=== PATIENT | male | born 1945 | race Caucasian/White ===

== ENCOUNTER 2025-02-05 18:00 | Inpatient (IN) | payer MEDICARE ==
[2025-02-05 20:49] LABS: HCT 39.6 % (39.6-50.0); HGB 13.8 g/dL (13.0-17.0); MCH 28.8 pg (27.0-32.0); MCHC 34.8 g/dL (32.0-37.0); MCV 82.7 fL (80.0-97.0); Mean Platelet Volume 10.3 fL (9.5-12.2); Platelet Count 143 10*3/uL (140-440); RBC 4.79 10*6/uL (4.40-5.60); WBC 19.44 10*3/uL (4.50-10.00)
[2025-02-05 21:00] LABS: ALT 47 U/L (4-49); AST 41 U/L (17-59); African American GFR (CKD) 81 (>60 ml/min/1.73 sqM); Albumin 3.4 g/dL (3.5-5.0); Alkaline Phosphatase 83 U/L (38-126); Anion Gap 7 mmol/L; Blood Urea Nitrogen 36 mg/dL (9-20); Calcium 9.1 mg/dL (8.4-10.2); Carbon Dioxide 24 mmol/L (22-30); Chloride 92 mmol/L (98-107); Glucose 129 mg/dL (74-99); Non-African American GFR(CKD) 70 (>60 ml/min/1.73 sqM); Potassium 4.5 mmol/L (3.5-5.1); Sodium 123 mmol/L (137-145); Total Protein 5.9 g/dL (6.3-8.2)
--- NOTE | 2025-02-05 21:11 | XR ---
EXAMINATION TYPE: XR foot complete RT, XR tibia fibula RT DATE OF EXAM: 02/05/2025 COMPARISON: NONE HISTORY: Infection TECHNIQUE: Frontal, lateral and oblique images of the right foot are obtained. Frontal and lateral i mages of the right tibia/fibula were obtained. FINDINGS: No acute fracture or dislocation. There is advanced joint space narrowing with sclerosis an d osteophytosis involving the first MTP joint. Remaining joint spaces are preserved. No osseous erosi ons. No radiopaque foreign body. Diffuse soft tissue swelling of the dorsal foot. Additional soft tis ver[place] swelling of the visualized right lower extremity and ankle. No discrete soft tissue gas. Plantar calcaneal enthesophyte. Chondrocalcinosis involving the medial and lateral tibiofemoral joint spaces. IMPRESSION: 1. No acute fracture or dislocation. 2. Diffuse nonspecific soft tissue swelling of the visualized right lung extremity. 3. No osseous erosive changes to suggest osteomyelitis. 4. 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 5. Chondrocalcinosis. [facility], , 02/05/2025 9:08 PM
[2025-02-05 21:12] LABS: Band Neutrophils % 18 %; Lymphocytes # (M) 0.39 k/uL (1.0-4.8); Myelocytes # (M) 0.19 k/uL (0); Myelocytes % 1 %; Neutrophils # (M) 19.24 k/uL (1.3-7.7); Neutrophils % (M) 81 %; Nucleated Red Blood Cells 0 /100 WBC (0-0); Total Cells Counted 200; Toxic Vacuolation Present
[2025-02-05 21:13] LABS: Large Platelets Present; Polychromasia Present
[2025-02-05] MEDS: SODIUM CHLORIDE 0.9% 1,000 ML IV SCH (21:18)
[2025-02-05] MEDS: SODIUM CHLORIDE 0.9% 1,000 ML IV ONE (21:18)
[2025-02-05] MEDS ORDERED: VANCOMYCIN IV PER PHARMACY 1 EACH MISC MISCELLANE PRN (21:18)
[2025-02-05] MEDS ORDERED: NALOXONE 0.4 MG/ML 1 ML VIAL IV PRN (21:21)
--- NOTE | 2025-02-05 21:24 | ED ---
General Adult HPI - General Chief complaint: Skin/Abscess/Foreign Body Stated complaint: swelling lower extremities Time Seen by Provider: 02/05/25 20:13 Source: patient Mode of arrival: wheelchair Limitations: no limitations - History of Present Illness Initial comments: 79-year-old male presenting with chief complaint of redness in the right lower extremity. Patient is also experiencing fever and chills. states that for the past few days he has had a fever and has been a bit confused and lethargic. Today she noticed the redness in his foot and up to the front of his leg and she brought him here to the ER. No injury or trauma. He does have a callus near the MTP joint that he states is a bit more painful than usual. He does have swelling in this leg as well. No chest pain or difficulty breathing. - Related Data Home Medications Medication Instructions Recorded Confirmed Atorvastatin [Lipitor] 80 mg PO W/SUPPER 02/06/25 02/06/25 Enalapril [Vasotec] 10 mg PO DAILY@1500 02/06/25 02/06/25 Ezetimibe [Zetia] 10 mg PO W/SUPPER 02/06/25 02/06/25 Gabapentin [Neurontin] 300 mg PO TID 02/06/25 02/06/25 Ibuprofen [Motrin Ib] 600 mg PO Q6H PRN 02/06/25 02/06/25 atenoloL [Tenormin] 25 mg PO DAILY 02/06/25 02/06/25 traMADol HCL 50 mg PO TID 02/06/25 02/06/25 Allergies Allergy/AdvReac Type Severity Reaction Status Date / Time No Known Allergies Allergy Verified 02/06/25 08:11 Review of Systems ROS Statement: Those systems with pertinent positive or pertinent negative responses have been documented in the HPI. ROS Other: All systems not noted in ROS Statement are negative. Past Medical History Past Medical History: Hyperlipidemia, Hypertension History of Any Multi-Drug Resistant Organisms: None Reported Past Surgical History: Back Surgery Past Psychological History: No Psychological Hx Reported Smoking Status: Former smoker Past Alcohol Use History: Occasional Past Drug Use History: None Reported General Exam Limitations: no limitations General appearance: alert, in no apparent distress Head exam: Present: atraumatic, normocephalic, normal inspection Eye exam: Present: normal appearance, EOMI Neck exam: Present: normal inspection. Absent: meningismus Respiratory exam: Absent: respiratory distress Cardiovascular Exam: Present: regular rate Right Lower Leg exam: Present: tenderness, swelling, erythema Ankle exam: Present: full ROM, tenderness, swelling, erythema Foot/Toe exam: Present: full ROM, tenderness, swelling, erythema. Absent: normal inspection Neurological exam: Present: alert, oriented X3 Psychiatric exam: Present: normal affect, normal mood Skin exam: Present: erythema Course Vital Signs 02/05/25 02/05/25 02/05/25 18:12 20:19 21:19 Temperature 97.9 F Pulse Rate 97 85 98 Respiratory 17 16 18 Rate Blood Pressure 96/60 110/68 114/78 O2 Sat by Pulse 95 98 95 Oximetry 02/05/25 22:00 Temperature 98.6 F Pulse Rate Respiratory Rate Blood Pressure O2 Sat by Pulse Oximetry Medical Decision Making - Medical Decision Making Was pt. sent in by a medical professional or institution (, PA, ARTIST MODEL, urgent care, hospital, or halfway...) When possible be specific @ -No Did you speak to anyone other than the patient for history (EMS, parent, family, police, friend...)? What history was obtained from this source @ - and daughter Did you review nursing and triage notes (agree or disagree)? Why? @ -I reviewed and agree with nursing and triage notes Were old charts reviewed (outside hosp., previous admission, EMS record, old EKG, old radiological studies, urgent care reports/EKG's, halfway records)? Report findings @ -No old charts were reviewed Differential Diagnosis (chest pain, altered mental status, abdominal pain women, abdominal pain men, vaginal bleeding, weakness, fever, dyspnea, syncope, headache, dizziness, GI bleed, back pain, seizure, CVA, palpatations, mental health, musculoskeletal)? @ -Differential Musculoskeletal Muscular strain, contusion, ligament sprain, fracture, arthritis, septic arthritis, bursitis, cellulitis, muscle spasm, nerve compression, DVT, arterial occlusion, herpes zoster, electrolyte abnormality, tumor.... This is not meant to be in all inclusive list EKG interpreted by me (3pts min.). @ -As above X-rays interpreted by me (1pt min.). @ -X-ray negative for acute fracture or dislocation. No osseous erosive changes to suggest osteomyelitis. Diffuse nonspecific soft tissue swelling. Ad vanced osteoarthritic changes to the first MTP joint. Chondrocalcinosis. CT interpreted by me (1pt min.). @ -None done U/S interpreted by me (1pt. min.). @ -None done What testing was considered but not performed or refused? (CT, X-rays, U/S, labs)? Why? @ -None What meds were considered but not given or refused? Why? @ -None Did you discuss the management of the patient with other professionals (professionals i.e. , PA, ARTIST MODEL, lab, RT, psych nurse, clinical social work therapist, certified dental assistant, teacher, security public safety officer, medical case manager)? Give summary @ -Spoke with Dr. Gusman who accepts admission Was smoking cessation discussed for >3mins.? @ -No Was critical care preformed (if so, how long)? @ -No Were there social determinants of health that impacted care today? How? (Homelessness, low income, unemployed, alcoholism, drug addiction, transportation, low edu. Level, literacy, decrease access to med. care, retirement, rehab)? @ -No Was there de-escalation of care discussed even if they declined (Discuss DNR or withdrawal of care, Hospice)? DNR status @ -No What co-morbidities impacted this encounter? (DM, HTN, Smoking, COPD, CAD, Cancer, CVA, ARF, Chemo, Hep., AIDS, mental health diagnosis, sleep apnea, morbid obesity)? @ -None Was patient admitted / discharged? Hospital course, mention meds given and route, prescriptions, significant lab abnormalities, going to OR and other pertinent info. @ -79-year-old male presenting chief complaint of redness tenderness and swelling to the right lower extremity accompanied by fever and some confusion. History and physical examination are conducted. X-ray negative for osteomyelitis. White count of 19.44. CRP 33.5. He started on Zosyn and vancomycin after blood cultures are drawn. He will be admitted for cellulitis with sepsis. Patient and family are agreeable with this plan. I discussed this case with my attending Dr. Saenz Undiagnosed new problem with uncertain prognosis? @ -No Drug Therapy requiring intensive monitoring for toxicity (Heparin, Nitro, Insulin, Cardizem)? @ -No Were any procedures done? @ -No Diagnosis/symptom? @ -Cellulitis with sepsis Acute, or Chronic, or Acute on Chronic? @ -Acute Uncomplicated (without systemic symptoms) or Complicated (systemic symptoms)? @ -Complicated Side effects of treatment? @ -No Exacerbation, Progression, or Severe Exacerbation? @ -No Poses a threat to life or bodily function? How? (Chest pain, [place], [place], pneumonia, PE, COPD, DKA, ARF, appy, cholecystitis, CVA, Diverticulitis, Homicidal, Suicidal, threat to staff... and all critical care pts) @ -Yes - Lab Data Result diagrams: 02/10/25 16:26 02/10/25 16:26 Lab Results 02/05/25 02/05/25 02/05/25 Range/Units 20:33 20:33 20:33 WBC 19.44 H (4.50-10.00) 10*3/uL RBC 4.79 (4.40-5.60) 10*6/uL Hgb 13.8 (13.0-17.0) g/dL Hct 39.6 (39.6-50.0) % MCV 82.7 (80.0-97.0) fL MCH 28.8 (27.0-32.0) pg MCHC 34.8 (32.0-37.0) g/dL Plt Count 143 (140-440) 10*3/uL MPV 10.3 (9.5-12.2) fL Immature Gran % (Auto) 7.4 % Neutrophils % (Manual) 81 % Band Neuts % (Manual) 18 % Lymphocytes % (Manual) 2 % Myelocytes % 1 % Immature Gran # 1.44 H (0.00-0.04) 10*3/uL Neutrophils # (Manual) 19.24 H (1.3-7.7) k/uL Lymphocytes # (Manual) 0.39 L (1.0-4.8) k/uL Myelocytes # (Manual) 0.19 H (0) k/uL Nucleated RBCs 0 (0-0) /100 WBC Manual Slide Review Performed Toxic Vacuolation Present Large Platelets Present Polychromasia Present ESR 40 H (0-20) mm/Hr Sodium 123 L (137-145) mmol/L Potassium 4.5 (3.5-5.1) mmol/L Chloride 92 L (98-107) mmol/L Carbon Dioxide 24 (22-30) mmol/L Anion Gap 7 mmol/L BUN 36 H (9-20) mg/dL Creatinine 1.03 (0.66-1.25) mg/dL Est GFR (CKD-EPI)AfAm 81 (>60 ml/min/1.73 sqM) Est GFR (CKD-EPI)NonAf 70 (>60 ml/min/1.73 sqM) Glucose 129 H (74-99) mg/dL Plasma Lactic Acid Dane 1.2 (0.7-2.0) mmol/L Calcium 9.1 (8.4-10.2) mg/dL Total Bilirubin 1.0 (0.2-1.3) mg/dL AST 41 (17-59) U/L ALT 47 (4-49) U/L Alkaline Phosphatase 83 (38-126) U/L C-Reactive Protein 33.5 H (<1.0) mg/dL Total Protein 5.9 L (6.3-8.2) g/dL Albumin 3.4 L (3.5-5.0) g/dL Disposition Clinical Impression: Cellulitis Disposition: ADMITTED IP TO THIS HOSP Condition: Fair Time of Disposition: 21:24
[2025-02-05] MEDS: PIPERACILLIN-TAZOBACTAM 3.375 GM in SODIUM CHLORIDE 0.9% 100 ML IVPB STA (21:41)
[2025-02-05] MEDS: MORPHINE SULFATE 4 MG/ML SYRINGE IVP PRN (21:43)
[2025-02-05 22:01] LABS: C Reactive Protein 33.5 mg/dL (<1.0)
[2025-02-05] MEDS: VANCOMYCIN 1,750 MG in SODIUM CHLORIDE 0.9% 500 ML 500 ML IVPB STA (22:41)
[2025-02-05] MEDS: ENOXAPARIN 40 MG/0.4 ML SYRINGE SQ SCH (23:47)
[2025-02-06] MEDS ORDERED: AMPICILLIN-SULBACTAM 1.5 GM in SODIUM CHLORIDE 0.9% 50 ML IVPB SCH
[2025-02-06 03:15] LABS: HCT 37.5 % (39.6-50.0); HGB 12.7 g/dL (13.0-17.0); Immature Platelet Fraction 3.6 % (1.1-6.1); MCH 28.7 pg (27.0-32.0); MCHC 33.9 g/dL (32.0-37.0); MCV 84.7 fL (80.0-97.0); Mean Platelet Volume 9.9 fL (9.5-12.2); Platelet Count 115 10*3/uL (140-440); RBC 4.43 10*6/uL (4.40-5.60); RDW 13.1 % (11.5-14.5)
[2025-02-06 03:32] LABS: African American GFR (CKD) >90 (>60 ml/min/1.73 sqM); Anion Gap 5 mmol/L; Blood Urea Nitrogen 28 mg/dL (9-20); Calcium 8.8 mg/dL (8.4-10.2); Carbon Dioxide 27 mmol/L (22-30); Chloride 96 mmol/L (98-107); Glucose 119 mg/dL (74-99); Non-African American GFR(CKD) 81 (>60 ml/min/1.73 sqM); Potassium 4.6 mmol/L (3.5-5.1); Sodium 128 mmol/L (137-145)
[2025-02-06 03:43] LABS: Erythrocyte Sedimentation Rate 40 mm/Hr (0-20)
[2025-02-06 06:24] LABS: Band Neutrophils % 6 %; Lymphocytes # (M) 0.69 k/uL (1.0-4.8); Monocytes # (M) 0.41 k/uL (0-1.0); Neutrophils # (M) 12.69 k/uL (1.3-7.7); Neutrophils % (M) 86 %; Nucleated Red Blood Cells 0 /100 WBC (0-0); Total Cells Counted 100
[2025-02-06] MEDS: traMADol 50 MG TAB PO PRN (08:42)
[2025-02-06] MEDS: AMPICILLIN-SULBACTAM 1.5 GM in SODIUM CHLORIDE 0.9% 50 ML IVPB SCH (08:45)
[2025-02-06] MEDS: ACETAMINOPHEN TAB 325 MG TAB PO PRN (09:03)
[2025-02-06] MEDS: GABAPENTIN 300 MG CAP PO SCH (12:02)
[2025-02-06] MEDS: LACTATED RINGERS 1,000 ML IV SCH (12:02)
[2025-02-06] MEDS: traMADol 50 MG TAB PO SCH (12:03)
[2025-02-06] MEDS: atenoloL 25 MG TAB PO SCH (12:03)
[2025-02-06] MEDS: ASPIRIN 81 MG PO SCH (12:03)
--- NOTE | 2025-02-06 12:59 | US ---
EXAMINATION TYPE: US venous doppler duplex LE RT DATE OF EXAM: 02/06/2025 12:25 PM COMPARISON: NONE CLINICAL INDICATION: Male, 79 years old with history of swollen and red; cellulitis, no h/o dvt TECHNIQUE: The lower extremity deep venous system is examined utilizing real time linear array sonog zuri with graded compression, color doppler sonography, and spectral doppler. SIDE PERFORMED: Right FINDINGS: VESSELS IMAGED: Common Femoral Vein Deep Femoral Vein Greater Saphenous Vein * Femoral Vein Popliteal Vein Small Saphenous Vein * Proximal Calf Veins (* superficial vessels) Right Leg: Negative for DVT, Color Doppler imaging shows patency of the vessels. Spectral waveforms are within normal limits. IMPRESSION: No ultrasound evidence for deep venous thrombosis. [facility], , 02/06/2025 12:56 PM
--- NOTE | 2025-02-06 13:45 | P.GSCN ---
History of Present Illness History of present illness: 79-year-old diabetic male history of cellulitis of the right lower extremity for the last few days no history of trauma patient came to the emergency room yesterday started on IV antibiotic venous ultrasou negative for DVT Past history patient had a cardiac stent placed in the past on examination chest is clear good good entry both lung 1st and 2nd sound present Abdomen soft nontender vascular femorals are 1+ bilateral right lower extremity has swelling of the dorsum aspect of the foot and lower extremity has a marked cellulitis and also right groin area patient is cellulitis right lower extremity plan is patient IV antibiotic and Silvadene cream with applied to the right lower extremity with 2 pillow elevation we will follow with you Past Medical History Past Medical History: Hyperlipidemia, Hypertension History of Any Multi-Drug Resistant Organisms: None Reported Past Surgical History: Back Surgery Past Psychological History: No Psychological Hx Reported Smoking Status: Former smoker Past Alcohol Use History: Occasional Past Drug Use History: None Reported Medications and Allergies Home Medications Medication Instructions Recorded Confirmed Type Atorvastatin [Lipitor] 80 mg PO W/SUPPER 02/06/25 02/06/25 History Enalapril [Vasotec] 10 mg PO DAILY@1500 02/06/25 02/06/25 History Ezetimibe [Zetia] 10 mg PO W/SUPPER 02/06/25 02/06/25 History Gabapentin [Neurontin] 300 mg PO TID 02/06/25 02/06/25 History Ibuprofen [Motrin Ib] 600 mg PO Q6H PRN 02/06/25 02/06/25 History atenoloL [Tenormin] 25 mg PO DAILY 02/06/25 02/06/25 History traMADol HCL 50 mg PO TID 02/06/25 02/06/25 History Allergies Allergy/AdvReac Type Severity Reaction Status Date / Time No Known Allergies Allergy Verified 02/06/25 08:11 Surgical - Exam Vital Signs Temp Pulse Resp BP Pulse Ox 97.9 F 97 17 96/60 95 02/05/25 18:12 02/05/25 18:12 02/05/25 18:12 02/05/25 18:12 02/05/25 18:12 Results - Labs 02/06/25 02:56 02/06/25 02:56 Abnormal Lab Results - Last 24 Hours (Table) 02/05/25 02/05/25 02/06/25 Range/Units 20:33 20:33 02:56 WBC 19.44 H (4.50-10.00) 10*3/uL Hgb (13.0-17.0) g/dL Hct (39.6-50.0) % Plt Count (140-440) 10*3/uL Immature Gran # 1.44 H (0.00-0.04) 10*3/uL Neutrophils # (Manual) 19.24 H (1.3-7.7) k/uL Lymphocytes # (Manual) 0.39 L (1.0-4.8) k/uL Myelocytes # (Manual) 0.19 H (0) k/uL ESR 40 H (0-20) mm/Hr Sodium 123 L 128 L (137-145) mmol/L Chloride 92 L 96 L (98-107) mmol/L BUN 36 H 28 H (9-20) mg/dL Glucose 129 H 119 H (74-99) mg/dL C-Reactive Protein 33.5 H (<1.0) mg/dL Total Protein 5.9 L (6.3-8.2) g/dL Albumin 3.4 L (3.5-5.0) g/dL 02/06/25 Range/Units 02:56 WBC 13.80 H (4.50-10.00) 10*3/uL Hgb 12.7 L (13.0-17.0) g/dL Hct 37.5 L (39.6-50.0) % Plt Count 115 L (140-440) 10*3/uL Immature Gran # 0.25 H (0.00-0.04) 10*3/uL Neutrophils # (Manual) 12.69 H (1.3-7.7) k/uL Lymphocytes # (Manual) 0.69 L (1.0-4.8) k/uL Myelocytes # (Manual) (0) k/uL ESR (0-20) mm/Hr Sodium (137-145) mmol/L Chloride (98-107) mmol/L BUN (9-20) mg/dL Glucose (74-99) mg/dL C-Reactive Protein (<1.0) mg/dL Total Protein (6.3-8.2) g/dL Albumin (3.5-5.0) g/dL Diabetes panel 02/05/25 02/06/25 Range/Units 20:33 02:56 Sodium 123 L 128 L (137-145) mmol/L Potassium 4.5 4.6 (3.5-5.1) mmol/L Chloride 92 L 96 L (98-107) mmol/L Carbon Dioxide 24 27 (22-30) mmol/L BUN 36 H 28 H (9-20) mg/dL Creatinine 1.03 0.91 (0.66-1.25) mg/dL Glucose 129 H 119 H (74-99) mg/dL Calcium 9.1 8.8 (8.4-10.2) mg/dL AST 41 (17-59) U/L ALT 47 (4-49) U/L Alkaline Phosphatase 83 (38-126) U/L Total Protein 5.9 L (6.3-8.2) g/dL Albumin 3.4 L (3.5-5.0) g/dL Calcium panel 02/05/25 02/06/25 Range/Units 20:33 02:56 Calcium 9.1 8.8 (8.4-10.2) mg/dL Albumin 3.4 L (3.5-5.0) g/dL Pituitary panel 02/05/25 02/06/25 Range/Units 20:33 02:56 Sodium 123 L 128 L (137-145) mmol/L Potassium 4.5 4.6 (3.5-5.1) mmol/L Chloride 92 L 96 L (98-107) mmol/L Carbon Dioxide 24 27 (22-30) mmol/L BUN 36 H 28 H (9-20) mg/dL Creatinine 1.03 0.91 (0.66-1.25) mg/dL Glucose 129 H 119 H (74-99) mg/dL Calcium 9.1 8.8 (8.4-10.2) mg/dL Adrenal panel 02/05/25 02/06/25 Range/Units 20:33 02:56 Sodium 123 L 128 L (137-145) mmol/L Potassium 4.5 4.6 (3.5-5.1) mmol/L Chloride 92 L 96 L (98-107) mmol/L Carbon Dioxide 24 27 (22-30) mmol/L BUN 36 H 28 H (9-20) mg/dL Creatinine 1.03 0.91 (0.66-1.25) mg/dL Glucose 129 H 119 H (74-99) mg/dL Calcium 9.1 8.8 (8.4-10.2) mg/dL Total Bilirubin 1.0 (0.2-1.3) mg/dL AST 41 (17-59) U/L ALT 47 (4-49) U/L Alkaline Phosphatase 83 (38-126) U/L Total Protein 5.9 L (6.3-8.2) g/dL Albumin 3.4 L (3.5-5.0) g/dL
[2025-02-06] MEDS ORDERED: VANCOMYCIN 1,750 MG in SODIUM CHLORIDE 0.9% 500 ML 500 ML IVPB SCH (14:00)
[2025-02-06] MEDS: lisinopriL 20 MG TAB PO SCH (14:33)
[2025-02-06] MEDS: ceFAZolin 3 GM in SODIUM CHLORIDE 0.9% 100 ML IVPB SCH (14:34)
[2025-02-06] MEDS: DOCUSATE 100 MG CAP PO SCH (15:39)
[2025-02-06] MEDS: ATORVASTATIN 80 MG TAB PO SCH (17:18)
[2025-02-06] MEDS: EZETIMIBE 10 MG TAB PO SCH (17:18)
--- NOTE | 2025-02-06 20:20 | P.HPIM ---
History of Present Illness H&P Date: 02/06/25 Chief Complaint: Right leg redness swelling Pleasant 79-year-old patient follows with Jennifer Wilson NP. Chronic medical conditions include hypertension, hyperlipidemia, chronic osteoarthritis specially lower back, CAD with stent 2005. History is obtained by patient's Rosi at the bedside. Patient has some cognitive impairment. Fever started 4 days ago. Significant chills and rigors. 2 days ago redness was noticed at the right leg. Decreased appetite. Admitted to the ER for cellulitis. Overnight redness extended up to the thigh. Swelling noted. Review of systems: GEN.: Fever chills rigors decreased appetite EYES: None HEENT: None NECK: None RESPIRATORY: None CARDIOVASCULAR: None GASTROINTESTINAL: None GENITOURINARY: None MUSCULOSKELETAL: [Chronic back pain LYMPHATICS: None HEMATOLOGICAL: None PSYCHIATRY: Forgetful NEUROLOGICAL: None Social history: Retired from [employer]. Smoked a pack a day for about 45 years stopped about 10 years ago alcohol occasionally Physical examination: VITAL SIGNS: 103, 131, 20, 174 x 80, 90% room air GENERAL: BMI 31.7, lying bed awake a bit tired. EYES: Pupils equal. Conjunctiva qiana l. HEENT: External appearance of nose and ears normal, oral cavity grossly normal. NECK: JVD not raised; masses not palpable. HEART: First and second heart sounds are normal; no edema. LUNGS: Respiratory rate normal; decreased breath sounds. ABDOMEN: Soft, nontender, liver spleen not palpable, no masses palpable. PSYCH: Answering simple questions. Mood affect normal l. MUSCULOSKELETAL:No Clubbing/cyanosis;muscles-grossly intact NEUROLOGICAL: Cranial nerves grossly intact; no facial asymmetry, power and sensation grossly intact. LYMPHATICS: No lymph nodes palpable in the axilla and neck Extremities: Redness of the right lower extremity going up to the thigh. Callus on the ball of the big toe. With some breakdown of skin INVESTIGATIONS, reviewed in the clinical context: February 06: White count 13.8 hemoglobin 12.7 platelets 115 sodium 128 potassium 4.6 BUN 28 creatinine 0.91 February 05: White count 19.4 hemoglobin 13.8 sodium 123 potassium 4.5 BUN 36 creatinine 1.03 CRP 33.5 Foot, tibia-fibula x-ray: Nonspecific findings. Assessment plan: - Acute severe cellulitis/lymphangitis of the right lower extremity. Symptoms present for about 4 days. Reports in the last 2 days. Overnight symptoms got worse. Causing sepsis. IV antibiotics. Blood cultures. Fluids. - Severe sepsis from cellulitis Fluids. IV antibiotics. - Hyperlipidemia Lipitor 80 mg nightly - Essential hypertension Vasotec. Tenormin - Osteoarthritis of the lumbar spine, with chronic pain Motrin. Ultram. Neurontin. - Mild cognitive impairment - Full code Doppler ultrasound was ordered to rule out DVT. Consultation to ID and vascular. Care was discussed with patient at the bedside. Past Medical History Past Medical History: Hyperlipidemia, Hypertension History of Any Multi-Drug Resistant Organisms: None Reported Past Surgical History: Back Surgery Past Psychological History: No Psychological Hx Reported Smoking Status: Former smoker Past Alcohol Use History: Occasional Past Drug Use History: None Reported Medications and Allergies Home Medications Medication Instructions Recorded Confirmed Type Atorvastatin [Lipitor] 80 mg PO W/SUPPER 02/06/25 02/06/25 History Enalapril [Vasotec] 10 mg PO DAILY@1500 02/06/25 02/06/25 History Ezetimibe [Zetia] 10 mg PO W/SUPPER 02/06/25 02/06/25 History Gabapentin [Neurontin] 300 mg PO TID 02/06/25 02/06/25 History Ibuprofen [Motrin Ib] 600 mg PO Q6H PRN 02/06/25 02/06/25 History atenoloL [Tenormin] 25 mg PO DAILY 02/06/25 02/06/25 History traMADol HCL 50 mg PO TID 02/06/25 02/06/25 History Allergies Allergy/AdvReac Type Severity Reaction Status Date / Time No Known Allergies Allergy Verified 02/06/25 08:11 Physical Exam Vitals: Vital Signs Temp Pulse Pulse Resp BP BP Pulse Ox 02/06/25 10:54 99.9 F H 112 H 19 156/82 92 L 02/06/25 08:49 103 F H 131 H 20 174/80 90 L 02/06/25 02:19 98.3 F 106 H 15 112/68 02/05/25 22:35 97.5 F L 104 H 17 131/69 02/05/25 22:00 98.6 F 02/05/25 21:19 98 18 114/78 95 02/05/25 20:19 85 16 110/68 98 02/05/25 18:12 97.9 F 97 17 96/60 95 Intake and Output 02/05/25 02/06/25 02/06/25 22:59 06:59 14:59 Other: # Voids 1 Weight 98.883 kg 98.883 kg Results CBC & Chem 7: 02/06/25 02:56 02/06/25 02:56 Labs: Abnormal Lab Results - Last 24 Hours (Table) 02/05/25 02/05/25 02/06/25 Range/Units 20:33 20:33 02:56 WBC 19.44 H (4.50-10.00) 10*3/uL Hgb (13.0-17.0) g/dL Hct (39.6-50.0) % Plt Count (140-440) 10*3/uL Immature Gran # 1.44 H (0.00-0.04) 10*3/uL Neutrophils # (Manual) 19.24 H (1.3-7.7) k/uL Lymphocytes # (Manual) 0.39 L (1.0-4.8) k/uL Myelocytes # (Manual) 0.19 H (0) k/uL ESR 40 H (0-20) mm/Hr Sodium 123 L 128 L (137-145) mmol/L Chloride 92 L 96 L (98-107) mmol/L BUN 36 H 28 H (9-20) mg/dL Glucose 129 H 119 H (74-99) mg/dL C-Reactive Protein 33.5 H (<1.0) mg/dL Total Protein 5.9 L (6.3-8.2) g/dL Albumin 3.4 L (3.5-5.0) g/dL 02/06/25 Range/Units 02:56 WBC 13.80 H (4.50-10.00) 10*3/uL Hgb 12.7 L (13.0-17.0) g/dL Hct 37.5 L (39.6-50.0) % Plt Count 115 L (140-440) 10*3/uL Immature Gran # 0.25 H (0.00-0.04) 10*3/uL Neutrophils # (Manual) 12.69 H (1.3-7.7) k/uL Lymphocytes # (Manual) 0.69 L (1.0-4.8) k/uL Myelocytes # (Manual) (0) k/uL ESR (0-20) mm/Hr Sodium (137-145) mmol/L Chloride (98-107) mmol/L BUN (9-20) mg/dL Glucose (74-99) mg/dL C-Reactive Protein (<1.0) mg/dL Total Protein (6.3-8.2) g/dL Albumin (3.5-5.0) g/dL Thrombosis Risk Factor Assmnt - Choose All That Apply Any of the Below Risk Factors Present?: Yes Each Factor Represents 1 point: Obesity (BMI >25), Swollen legs (current) Other Risk Factors: Yes Each Risk Factor Represents 3 Points: Age 75 years or older Other congenital or acquired thrombophilia - If yes, enter type in comment: No Thrombosis Risk Factor Assessment Total Risk Factor Score: 5 Thrombosis Risk Factor Assessment Level: High Risk
--- NOTE | 2025-02-06 23:01 | P.CONS ---
History of Present Illness - Reason for Consult Consult date: 02/06/25 Infectious disease on antibiotics Requesting physician: Adair Gusman - Chief Complaint Swelling and redness to the right leg x 1 day - History of Present Illness Patient is a 79-year-old male with a past medical history significant for hypertension hyperlipidemia presenting to the hospital for evaluation of increasing pain swelling redness to right lower extremity that apparently was noticed by the the day before presentation the hospital he seemed to have issues with increasing swelling of the leg however has developed increasing redness to the leg over the last 24 hours patient denies any history of any trauma or any skin breakdown has been complaining of pain to the right lower extremity mostly dull aching to sharp moderate intensity without radiation Main concern has been increasing swelling as well as diffuse redness to the right leg on presentation to the hospital the patient was initially febrile however he did spike a fever of 103 F this morning patient was tachycardic but not hypotensive or hypoxic and no need for supplemental oxygen he did have elevated white count 19.44 creatinine is 1.03 liver enzymes are normal CRP is 33.5 blood culture have been obtained which are currently pending patient did have x-ray of the tibia-fibula and foot did not show any bony abnormality abdominal ultrasound currently pending patient did received vancomycin in the ER he was started on Unasyn infectious disease was consulted for further management of antibiotic therapy Review of Systems Positive point and negatives has been mentioned in the HPI, complete review of systems was performed and all other systems are negative Past Medical History Past Medical History: Hyperlipidemia, Hypertension History of Any Multi-Drug Resistant Organisms: None Reported Past Surgical History: Back Surgery Past Psychological History: No Psychological Hx Reported Smoking Status: Former smoker Past Alcohol Use History: Occasional Past Drug Use History: None Reported Medications and Allergies Home Medications Medication Instructions Recorded Confirmed Type Atorvastatin [Lipitor] 80 mg PO W/SUPPER 02/06/25 02/06/25 History Enalapril [Vasotec] 10 mg PO DAILY@1500 02/06/25 02/06/25 History Ezetimibe [Zetia] 10 mg PO W/SUPPER 02/06/25 02/06/25 History Gabapentin [Neurontin] 300 mg PO TID 02/06/25 02/06/25 History Ibuprofen [Motrin Ib] 600 mg PO Q6H PRN 02/06/25 02/06/25 History atenoloL [Tenormin] 25 mg PO DAILY 02/06/25 02/06/25 History traMADol HCL 50 mg PO TID 02/06/25 02/06/25 History Allergies Allergy/AdvReac Type Severity Reaction Status Date / Time No Known Allergies Allergy Verified 02/06/25 08:11 Physical Exam Vitals: Vital Signs Temp Pulse Pulse Resp BP BP Pulse Ox 02/06/25 10:54 99.9 F H 112 H 19 156/82 92 L 02/06/25 08:49 103 F H 131 H 20 174/80 90 L 02/06/25 02:19 98.3 F 106 H 15 112/68 02/05/25 22:35 97.5 F L 104 H 17 131/69 02/05/25 22:00 98.6 F 02/05/25 21:19 98 18 114/78 95 02/05/25 20:19 85 16 110/68 98 02/05/25 18:12 97.9 F 97 17 96/60 95 Intake and Output 02/05/25 02/06/25 02/06/25 22:59 06:59 14:59 Other: # Voids 1 Weight 98.883 kg 98.883 kg GENERAL DESCRIPTION: Elderly male lying in bed, no distress. No tachypnea or accessory muscle of respiration use. HEENT: Shows Pallor , no scleral icterus. Oral mucous membrane is dry. No pharyngeal erythema or thrush NECK: Trachea central, no thyromegaly. LUNGS: Unlabored breathing. Clear to auscultation anteriorly. No wheeze or crackle. HEART: S1, S2, regular rate and rhythm. No loud murmur ABDOMEN: Soft, no tenderness , guarding or rigidity, no organomegaly EXTREMITIES: Diffuse swelling redness of the right lower extremity extending to the right medial thigh area SKIN: No rash, no masses palpable. NEUROLOGICAL: The patient is awake, alert, oriented x3, mood and affect normal. Results CBC & Chem 7: 02/06/25 02:56 02/06/25 02:56 Labs: Abnormal Lab Results - Last 24 Hours (Table) 02/05/25 02/05/25 02/06/25 Range/Units 20:33 20:33 02:56 WBC 19.44 H (4.50-10.00) 10*3/uL Hgb (13.0-17.0) g/dL Hct (39.6-50.0) % Plt Count (140-440) 10*3/uL Immature Gran # 1.44 H (0.00-0.04) 10*3/uL Neutrophils # (Manual) 19.24 H (1.3-7.7) k/uL Lymphocytes # (Manual) 0.39 L (1.0-4.8) k/uL Myelocytes # (Manual) 0.19 H (0) k/uL ESR 40 H (0-20) mm/Hr Sodium 123 L 128 L (137-145) mmol/L Chloride 92 L 96 L (98-107) mmol/L BUN 36 H 28 H (9-20) mg/dL Glucose 129 H 119 H (74-99) mg/dL C-Reactive Protein 33.5 H (<1.0) mg/dL Total Protein 5.9 L (6.3-8.2) g/dL Albumin 3.4 L (3.5-5.0) g/dL 02/06/25 Range/Units 02:56 WBC 13.80 H (4.50-10.00) 10*3/uL Hgb 12.7 L (13.0-17.0) g/dL Hct 37.5 L (39.6-50.0) % Plt Count 115 L (140-440) 10*3/uL Immature Gran # 0.25 H (0.00-0.04) 10*3/uL Neutrophils # (Manual) 12.69 H (1.3-7.7) k/uL Lymphocytes # (Manual) 0.69 L (1.0-4.8) k/uL Myelocytes # (Manual) (0) k/uL ESR (0-20) mm/Hr Sodium (137-145) mmol/L Chloride (98-107) mmol/L BUN (9-20) mg/dL Glucose (74-99) mg/dL C-Reactive Protein (<1.0) mg/dL Total Protein (6.3-8.2) g/dL Albumin (3.5-5.0) g/dL Assessment and Plan (1) Sepsis Current Visit: Yes Status: Acute Code(s): A41.9 - SEPSIS, UNSPECIFIED O RGANISM SNOMED Code(s): 41573763 (2) Cellulitis of right leg Current Visit: Yes Status: Acute Code(s): L03.115 - CELLULITIS OF RIGHT LOWER LIMB SNOMED Code(s): 50678654904901142 Plan: 1patient [facility] hospital with sepsis in this patient who did have fever tachycardia elevated white count meeting currently for SIRS source is right lower extremity cellulitis in this patient who did have diffuse swelling redness likely streptococcal disease 2-we will discontinue Unasyn 3-start the patient on cefazolin 3 g every 8 hours 4-await Doppler if negative will advise Ruben wrap from just over the toe to below the knee at the bedside multiple question concern answered We will follow on clinical condition and cultures to further adjust medication if needed Thank you for this consultation we will follow the patient along with you Dictation was produced using [employer] dictation software. please excuse any grammatical, word or spelling errors. Time with Patient: Greater than 30
--- NOTE | 2025-02-07 08:21 | P.PN ---
Progress Note - Text 79-year-old gentleman who came with marked swelling of the right lower extremity with cellulitis. Patient had a venous ultrasound which was negative for DVT femoral pulses are palpable bilateral we have been using Silvadene cream with 2 pillow or elevation and compression wrap. Today swelling is less some swelling noted on the dorsal aspect of the foot Plan is patient IV antibiotic under care of infectious disease change dressing use Silvadene cream with 2 pillow elevation
[2025-02-07] MEDS: SILVER sulfADIAZINE Cream 400 GM 1 APPLIC APPLIC TOPICAL SCH (10:17)
--- NOTE | 2025-02-07 12:37 | P.PN ---
Subjective Progress Note Date: 02/07/25 Principal diagnosis: Reason for follow-up is right leg cellulitis Patient is a 79-year-old male with a past medical history significant for hypertension hyperlipidemia presenting to the hospital for evaluation of increasing pain swelling redness to right lower extremity has been diagnosed with a right leg cellulitis prompting this consultation. On today's evaluation that is 02/07/2025, patient did have a fever of 102.3 F at 2 AM the patient did have a low-grade fever of 99.8 this morning, patient is breathing comfortably on 3 L current oxygen, patient with no chest pain or cough patient did not have any abdominal pain nausea vomiting or any loose stools, still complaining of swelling to lower extremity and some weeping edema per the at the bedside. No new labs has been obtained today blood cultures are pending Objective - Vital Signs Vital signs: Vital Signs Temp 99.8 F H 02/07/25 08:00 Pulse 89 02/07/25 08:00 Resp 18 02/07/25 08:00 BP 129/68 02/07/25 08:00 Pulse Ox 96 02/07/25 08:00 FiO2 Intake & Output 02/06/25 02/07/25 02/07/25 18:59 06:59 18:59 Other: # Voids 2 5 # Bowel Movements 2 - Exam GENERAL DESCRIPTION: An elderly male lying in bed in no distress RESPIRATORY SYSTEM: Unlabored breathing , decreased breath sounds at bases HEART: S1 S2 regular rate and rhythm , ABDOMEN: Soft , no tenderness EXTREMITIES: Right is currently wrapped with a Ruben wrap no drainage - Labs CBC & Chem 7: 02/06/25 02:56 02/06/25 02:56 Labs: Microbiology - Last 24 Hours (Table) 02/05/25 20:33 Blood Culture - Preliminary Blood Assessment and Plan (1) Sepsis Current Visit: Yes Status: Acute Code(s): A41.9 - SEPSIS, UNSPECIFIED ORGANISM SNOMED Code(s): 74787776 (2) Cellulitis of right leg Current Visit: Yes Status: Acute Code(s): L03.115 - CELLULITIS OF RIGHT LOWER LIMB SNOMED Code(s): 06697522984075546 Plan: 1patient presented hospital with sepsis in this patient who did have fever tachycardia elevated white count meeting currently for SIRS source is right lower extremity cellulitis in this patient who did have diffuse swelling redness likely streptococcal disease 2-- Doppler of the lower extremity negative, to continue Ruben wrap from just over the toe to below the knee. 3patient currently being treated with cefazolin 3 g every 8 hours with significant swelling discontinue lactated Ringer may benefit from gentle di uresis we will leave that to admitting team at the bedside multiple question concern answered Dictation was produced using [employer] dictation software. please excuse any grammatical, word or spelling errors. Time with Patient: Less than 30
--- NOTE | 2025-02-07 13:40 | P.PN ---
Progress Note - Text Progress Note Date: 02/07/25 Chief Complaint: Right leg redness swelling Pleasant 79-year-old patient follows with Jennifer Wilson NP. Chronic medical conditions include hypertension, hyperlipidemia, chronic osteoarthritis specially lower back, CAD with stent 2006. History is obtained by patient's Rosi at the bedside. Patient has some cognitive impairment. Fever started 4 days ago. Significant chills and rigors. 2 days ago redness was noticed at the right leg. Decreased appetite. Admitted to the ER for cellulitis. Overnight redness extended up to the thigh. Swelling noted. February 07: Patient spiked fever. Getting Silvadene dressing with Ruben wrap. Nurse informed me there is a discrepancy between a temperature overall versus armpit which is likely higher. I have asked her to confirm and check a rectal temperature. P on IV cefazolin. Patient cellulitic lesions likely improving. Eating fair spoke at length with patient's Rosi at the bedside. Active Medications Acetaminophen (Acetaminophen Tab 325 Mg Tab) 650 mg PO Q6HR PRN PRN Reason: Mild Pain or Fever > 100.5 Last Admin: 02/07/25 10:12 Dose: 650 mg Aspirin (Aspirin 81 Mg) 81 mg PO DAILY [facility] Last Admin: 02/07/25 10:12 Dose: 81 mg Atenolol (Atenolol 25 Mg Tab) 25 mg PO DAILY [facility] Last Admin: 02/07/25 11:11 Dose: 25 mg Atorvastatin Calcium (Atorvastatin 80 Mg Tab) 80 mg PO W/SUPPER [facility] Last Admin: 02/06/25 17:18 Dose: 80 mg Docusate Sodium (Docusate 100 Mg Cap) 100 mg PO DAILY [facility] Last Admin: 02/07/25 10:14 Dose: Not Given Ezetimibe (Ezetimibe 10 Mg Tab) 10 mg PO W/SUPPER [facility] Last Admin: 02/06/25 17:18 Dose: 10 mg Enoxaparin Sodium (Enoxaparin 40 Mg/0.4 Ml Syringe) 40 mg SQ DAILY [facility] Last Admin: 02/07/25 10:14 Dose: 40 mg Gabapentin (Gabapentin 300 Mg Cap) 300 mg PO TID [facility] Last Admin: 02/07/25 10:13 Dose: 300 mg Cefazolin Sodium 3 gm/ Sodium (Chloride) 100 mls @ 200 mls/hr IVPB Q8HR [facility]; Protocol Last Admin: 02/07/25 11:12 Dose: 200 mls/hr Lisinopril (Lisinopril 20 Mg Tab) 20 mg PO DAILY@1500 [facility] Last Admin: 02/06/25 14:33 Dose: 20 mg Morphine Sulfate (Morphine Sulfate 4 Mg/Ml Syringe) 4 mg IVP Q4HR PRN PRN Reason: Pain Last Admin: 02/05/25 21:43 Dose: 4 mg Naloxone HCl (Naloxone 0.4 Mg/Ml 1 Ml Vial) 0.2 mg IV Q2M PRN PRN Reason: Opioid Reversal Silver Sulfadiazine (Silver Sulfadiazine Cream 400 Gm 1 Applic Applic) 1 applic TOPICAL DAILY [facility]; Protocol Last Admin: 02/07/25 10:17 Dose: 1 applic Tramadol HCl (Tramadol 50 Mg Tab) 50 mg PO Q6H PRN PRN Reason: Moderate Pain (Scale 4 to 6) Last Admin: 02/06/25 08:42 Dose: 50 mg Tramadol HCl (Tramadol 50 Mg Tab) 50 mg PO TID [facility] Last Admin: 02/07/25 10:14 Dose: 50 mg Social history: Retired from [employer]. Smoked a pack a day for about 45 years stopped about 10 years ago alcohol occasionally Physical examination: VITAL SIGNS: Tmax 102.3, 107, 18, 116 x 63, 95% 2 L at 2 AM GENERAL: BMI 31.7, lying bed awake a bit tired. EYES: Pupils equal. Conjunctiva qiana l. HEENT: External appearance of nose and ears normal, oral cavity grossly normal. NECK: JVD not raised; masses not palpable. HEART: First and second heart sounds are normal; no edema. LUNGS: Respiratory rate normal; decreased breath sounds. ABDOMEN: Soft, nontender, liver spleen not palpable, no masses palpable. PSYCH: Answering simple questions. Mood affect normal l. MUSCULOSKELETAL:No Clubbing/cyanosis;muscles-grossly intact Extremities: Dressing with Ruben wrap right lower extremity INVESTIGATIONS, reviewed in the clinical context: February 06: White count 13.8 hemoglobin 12.7 platelets 115 sodium 128 potassium 4.6 BUN 28 creatinine 0.91 February 05: White count 19.4 hemoglobin 13.8 sodium 123 potassium 4.5 BUN 36 creatinine 1.03 CRP 33.5 Foot, tibia-fibula x-ray: Nonspecific findings. Assessment plan: - Acute severe cellulitis/lymphangitis of the right lower extremity. Symptoms present for about 4 days. Reports in the last 2 days. Overnight symptoms got worse. Causing sepsis.: Slow to respond. Still spiking fevers IV Ancef. Blood cultures. Fluids. - Severe sepsis from cellulitis: Slow to respond Fluids. IV antibiotics. - Hyperlipidemia Lipitor 80 mg nightly - Essential hypertension Vasotec. Tenormin - Osteoarthritis of the lumbar spine, with chronic pain Motrin. Ultram. Neurontin. - Mild cognitive impairment - Full code Will check rectal temperature. Discussed with the Rosi at the bedside. Continue IV Ancef.. Local care. Past Medical History Past Medical History: Hyperlipidemia, Hypertension History of Any Multi-Drug Resistant Organisms: None Reported Past Surgical History: Back Surgery Past Psychological History: No Psychological Hx Reported Smoking Status: Former smoker Past Alcohol Use History: Occasional Past Drug Use History: None Reported
[2025-02-08 03:37] LABS: Basophils # (A) 0.09 10*3/uL (0.00-0.10); Basophils % (A) 0.6 %; Eosinophils # (A) 0.04 10*3/uL (0.04-0.35); Eosinophils % (A) 0.3 %; HCT 32.4 % (39.6-50.0); HGB 11.2 g/dL (13.0-17.0); Lymphocytes # (A) 0.56 10*3/uL (0.90-5.00); Lymphocytes % (A) 3.6 %; MCH 28.6 pg (27.0-32.0); MCHC 34.6 g/dL (32.0-37.0); MCV 82.7 fL (80.0-97.0); Mean Platelet Volume 10.5 fL (9.5-12.2); Monocytes # (A) 0.94 10*3/uL (0.20-1.00); Neutrophils # (A) 13.54 10*3/uL (1.80-7.70); Neutrophils % (A) 85.9 %; Platelet Count 114 10*3/uL (140-440); RBC 3.92 10*6/uL (4.40-5.60); RDW 13.2 % (11.5-14.5); WBC 15.73 10*3/uL (4.50-10.00)
[2025-02-08 03:46] LABS: African American GFR (CKD) >90 (>60 ml/min/1.73 sqM); Anion Gap 7 mmol/L; Blood Urea Nitrogen 13 mg/dL (9-20); Carbon Dioxide 24 mmol/L (22-30); Chloride 95 mmol/L (98-107); Glucose 94 mg/dL (74-99); Non-African American GFR(CKD) >90 (>60 ml/min/1.73 sqM); Potassium 3.7 mmol/L (3.5-5.1); Sodium 126 mmol/L (137-145)
--- NOTE | 2025-02-08 13:04 | P.PN ---
Progress Note - Text 79-year-old gentleman who came in with history of sudden onset of cellulitis involving the dorsum aspect of foot and right lower extremity. Patient had a venous ultrasound there was no evidence for deep vein thrombosis. Has no history of trauma no open wound noted. We have been treating with IV antibiotic and Silvadene cream and compression wrap with 2 pillow elevation today with a venous ultrasound to check for the reflux in the deep system patient has no reflux in the deep system. Patient is an IV antibiotic in the infectious d isease we will continue the same treatment send Silvadene cream with compression wrap 2. Elevation and IV antibiotic
--- NOTE | 2025-02-08 13:21 | US ---
EXAMINATION TYPE: US venous doppler duplex LE RT; LOWER EXTREMITY VENOUS INSUFFICIENCY DATE OF EXAM: 02/08/2025 Exam done portable COMPARISON: NONE CLINICAL INDICATION: Male, 79 years old with history of swelling redness weeping; TECHNIQUE: Grayscale color Doppler and spectral Doppler imaging of the lower extremity veins. FINDINGS: SIDE PERFORMED: Right 1) Color flow is present and patency is documented in the following vessels. No DVT or SVT is noted . Common Femoral Vein Deep Femoral Vein Femoral Vein Popliteal Vein Proximal Calf Veins Greater Saph Vein Upper Small Saph Vein 2) There is venous reflux noted at the following venous levels: None 3) Incompetent perforators are noted at these levels: None IMPRESSION: No evidence for venous insufficiency/reflux. [facility], , 02/08/2025 1:19 PM
[2025-02-08] MEDS: CLINDAMYCIN 900 MG in DEXTROSE 5% IN WATER 50 ML IVPB SCH (14:55)
[2025-02-08] MEDS: FUROSEMIDE 10 MG/ML 2 ML VIAL IV ONE ×2 (15:44→19:55)
[2025-02-08] MEDS ORDERED: FUROSEMIDE 10 MG/ML 2 ML VIAL IV ONE (19:00)
--- NOTE | 2025-02-08 21:08 | P.PN ---
Subjective Progress Note Date: 02/08/25 Principal diagnosis: Reason for follow-up is right leg cellulitis Patient is a 79-year-old male with a past medical history significant for hypertension hyperlipidemia presenting to the hospital for evaluation of increasing pain swelling redness to right lower extremity has been diagnosed with a right leg cellulitis prompting this consultation. On today's evaluation that is 02/08/2025, Patient did have low-grade fever 100.4 F at 2 AM the patient is afebrile since then, patient is currently on room air and denies having any shortness of breath, the patient denies any chest pain or cough, the patient denies any nausea vomiting did not have any abdominal pain and no diarrhea still have significant swelling to the right lower extremity. Patient white count slightly up to 15.73 creatinine 0.56 blood cultures are pending Objective - Vital Signs Vital signs: Vital Signs Temp 98.3 F 02/08/25 08:00 Pulse 109 H 02/08/25 08:00 Resp 19 02/08/25 08:00 BP 128/69 02/08/25 08:00 Pulse Ox 95 02/08/25 08:00 FiO2 Intake & Output 02/07/25 02/08/25 02/08/25 18:59 06:59 18:59 Intake Total 340 Balance 340 Intake: Intake, IV Titration 340 Amount Lactated Ringers 1,000 ml 240 @ 130 mls/hr IV .[id number] [facility] Rx#:[id number] ceFAZolin 3 gm In Sodium 100 Chloride 0.9% 100 ml @ 200 mls/hr IVPB Q8HR [facility] Rx#:[id number] Other: # Voids 3 1 # Bowel Movements 1 - Exam GENERAL DESCRIPTION: An elderly male lying in bed in no distress RESPIRATORY SYSTEM: Unlabored breathing , decreased breath sounds at bases HEART: S1 S2 regular rate and rhythm , ABDOMEN: Soft , no tenderness EXTREMITIES: Right lower extremity/significant swelling redness slightly decreased - Labs CBC & Chem 7: 02/08/25 02:39 02/08/25 02:39 Labs: Abnormal Lab Results - Last 24 Hours (Table) 02/08/25 02/08/25 Range/Units 02:39 02:39 WBC 15.73 H (4.50-10.00) 10*3/uL RBC 3.92 L (4.40-5.60) 10*6/uL Hgb 11.2 L (13.0-17.0) g/dL Hct 32.4 L (39.6-50.0) % Plt Count 114 L (140-440) 10*3/uL Immature Gran # 0.56 H (0.00-0.04) 10*3/uL Neutrophils # 13.54 H (1.80-7.70) 10*3/uL Lymphocytes # 0.56 L (0.90-5.00) 10*3/uL Sodium 126 L (137-145) mmol/L Chloride 95 L (98-107) mmol/L Creatinine 0.56 L (0.66-1.25) mg/dL Calcium 8.0 L (8.4-10.2) mg/dL Microbiology - Last 24 Hours (Table) 02/05/25 20:33 Blood Culture - Preliminary Blood Assessment and Plan (1) Sepsis Current Visit: Yes Status: Acute Code(s): A41.9 - SEPSIS, UNSPECIFIED ORGANISM SNOMED Code(s): 20718380 (2) Cellulitis of right leg Current Visit: Yes Status: Acute Code(s): L03.115 - CELLULITIS OF RIGHT LOWER LIMB SNOMED Code(s): 75099330464370668 Plan: 1patient presented hospital with sepsis in this patient who did have fever tachycardia elevated white count meeting currently for SIRS source is right lower extremity cellulitis in this patient who did have diffuse swelling redness likely streptococcal disease 2-- Doppler of the lower extremity negative, patient advised to continue Ruben wrap from just over the toe to below the knee. 3patient did have a low-grade fever white count slightly up we will add clindamycin to continue with the cefazolin will benefit from gentle diuresis because of significant swelling to the leg at the bedside question answered Dictation was produced using [employer] dictation software. please excuse any grammatical, word or spelling errors. Time with Patient: Less than 30
--- NOTE | 2025-02-08 21:08 | P.PN ---
Progress Note - Text Progress Note Date: 02/08/25 Chief Complaint: Right leg redness swelling Pleasant 79-year-old patient follows with Jennifer Wilson NP. Chronic medical conditions include hypertension, hyperlipidemia, chronic osteoarthritis specially lower back, CAD with stent 2005. History is obtained by patient's Rosi at the bedside. Patient has some cognitive impairment. Fever started 4 days ago. Significant chills and rigors. 2 days ago redness was noticed at the right leg. Decreased appetite. Admitted to the ER for cellulitis. Overnight redness extended up to the thigh. Swelling noted. February 07: Patient spiked fever. Getting Silvadene dressing with Ruben wrap. Nurse informed me there is a discrepancy between a temperature overall versus armpit which is likely higher. I have asked her to confirm and check a rectal temperature. P on IV cefazolin. Patient cellulitic lesions likely improving. Eating fair spoke at length with patient's Rosi at the bedside. February 08: Patient's right leg swelling with some edema. Slight oozing. Significant redness with blotchiness present. Being followed by Dr. Sharma from vascular and ID. Clindamycin is being added. Had received IV fluids. Also drinking quite a bit of fluids. Patient is fluid restricted. Will give some IV Lasix 20 mcg x 2 doses. Discussed with the Rosi at the bedside. Patient's temperatures are being done in the armpit. Temperatures are coming down. Silvadene cream. Ruben wrap Active Medications Acetaminophen (Acetaminophen Tab 325 Mg Tab) 650 mg PO Q6HR PRN PRN Reason: Mild Pain or Fever > 100.5 Last Admin: 02/08/25 20:05 Dose: 650 mg Aspirin (Aspirin 81 Mg) 81 mg PO DAILY [facility] Last Admin: 02/08/25 09:33 Dose: 81 mg Atenolol (Atenolol 25 Mg Tab) 25 mg PO DAILY [facility] Last Admin: 02/08/25 09:33 Dose: 25 mg Atorvastatin Calcium (Atorvastatin 80 Mg Tab) 80 mg PO W/SUPPER [facility] Last Admin: 02/08/25 17:17 Dose: 80 mg Docusate Sodium (Docusate 100 Mg Cap) 100 mg PO DAILY [facility] Last Admin: 02/08/25 09:33 Dose: 100 mg Ezetimibe (Ezetimibe 10 Mg Tab) 10 mg PO W/SUPPER [facility] Last Admin: 02/08/25 17:17 Dose: 10 mg Enoxaparin Sodium (Enoxaparin 40 Mg/0.4 Ml Syringe) 40 mg SQ DAILY [facility] Last Admin: 02/08/25 09:34 Dose: 40 mg Gabapentin (Gabapentin 300 Mg Cap) 300 mg PO TID [facility] Last Admin: 02/08/25 20:05 Dose: 300 mg Cefazolin Sodium 3 gm/ Sodium (Chloride) 100 mls @ 200 mls/hr IVPB Q8HR [facility]; Protocol Last Admin: 02/08/25 16:11 Dose: 200 mls/hr Clindamycin Phosphate 900 mg/ (Dextrose/Water) 56 mls @ 50 mls/hr IVPB Q8HR [facility]; Protocol Last Admin: 02/08/25 14:55 Dose: 50 mls/hr Lisinopril (Lisinopril 20 Mg Tab) 20 mg PO DAILY@1500 [facility] Last Admin: 02/08/25 14:55 Dose: 20 mg Morphine Sulfate (Morphine Sulfate 4 Mg/Ml Syringe) 4 mg IVP Q4HR PRN PRN Reason: Pain Last Admin: 02/05/25 21:43 Dose: 4 mg Naloxone HCl (Naloxone 0.4 Mg/Ml 1 Ml Vial) 0.2 mg IV Q2M PRN PRN Reason: Opioid Reversal Silver Sulfadiazine (Silver Sulfadiazine Cream 400 Gm 1 Applic Applic) 1 applic TOPICAL DAILY [facility]; Protocol Last Admin: 02/08/25 09:34 Dose: 1 applic Tramadol HCl (Tramadol 50 Mg Tab) 50 mg PO Q6H PRN PRN Reason: Moderate Pain (Scale 4 to 6) Last Admin: 02/06/25 08:42 Dose: 50 mg Tramadol HCl (Tramadol 50 Mg Tab) 50 mg PO TID [facility] Last Admin: 02/08/25 20:04 Dose: 50 mg Social history: Retired from [employer]. Smoked a pack a day for about 45 years stopped about 10 years ago alcohol occasionally Physical examination: VITAL SIGNS: 98.3, 109, 19, 128 x 69, 95% room GENERAL: BMI 31.7, lying bed awake EYES: Pupils equal. Conjunctiva qiana l. HEENT: External appearance of nose and ears normal, oral cavity grossly normal. NECK: JVD not raised; masses not palpable. HEART: First and second heart sounds are normal; LUNGS: Respiratory rate normal; decreased breath sounds. ABDOMEN: Soft, nontender, liver spleen not palpable, no masses palpable. PSYCH: Answering simple questions. Mood affect normal l. MUSCULOSKELETAL:No Clubbing/cyanosis;muscles-grossly intact Extremities: Right leg with significant edema. Redness blotchiness. Some oozing INVESTIGATIONS, reviewed in the clinical context: February 08: White count 15.7 hemoglobin 11.2 platelets 114 sodium 126 potassium 3.7 creatinine 0.56 February 06: White count 13.8 hemoglobin 12.7 platelets 115 sodium 128 potassium 4.6 BUN 28 creatinine 0.91 February 05: White count 19.4 hemoglobin 13.8 sodium 123 potassium 4.5 BUN 36 creatinine 1.03 CRP 33.5 Foot, tibia-fibula x-ray: Nonspecific findings. Assessment plan: - Acute severe cellulitis/lymphangitis of the right lower extremity. Symptoms present for about 4 days. Reports in the last 2 days. Overnight symptoms got worse. Causing sepsis.: Slow to respond. Still spiking fevers IV Ancef. Blood cultures. IV clindamycin added today. - Severe sepsis from cellulitis: Slow to respond Received fluids. IV antibiotics. - Fluid overload from IV fluids and increased oral intake IV Lasix. Fluid restriction - Hyponatremia with hypervolemia IV Lasix. Fluid restriction. Avoid free water - Hyperlipidemia Lipitor 80 mg nightly - Essential hypertension Vasotec. Tenormin - Osteoarthritis of the lumbar spine, with chronic pain Motrin. Ultram. Neurontin. - Mild cognitive impairment - Full code IV clindamycin added. Fluid restriction. IV Lasix. Past Medical History Past Medical History: Hyperlipidemia, Hypertension History of Any Multi-Drug Resistant Organisms: None Reported Past Surgical History: Back Surgery Past Psychological History: No Psychological Hx Reported Smoking Status: Former smoker Past Alcohol Use History: Occasional Past Drug Use History: None Reported
[2025-02-09 07:14] LABS: African American GFR (CKD) >90 (>60 ml/min/1.73 sqM); Anion Gap 6 mmol/L; Blood Urea Nitrogen 15 mg/dL (9-20); Carbon Dioxide 31 mmol/L (22-30); Chloride 91 mmol/L (98-107); Glucose 104 mg/dL (74-99); Non-African American GFR(CKD) >90 (>60 ml/min/1.73 sqM); Potassium 3.8 mmol/L (3.5-5.1); Sodium 128 mmol/L (137-145)
[2025-02-09] MEDS: PSYLLIUM HUSK 100% 6 GM PACKET PO SCH (08:13)
[2025-02-09] MEDS: FUROSEMIDE 10 MG/ML 2 ML VIAL IV ONE (11:39)
[2025-02-09] MEDS: DAPTOmycin 350 MG in SODIUM CHLORIDE 0.9% 50 ML IVPB SCH (13:30)
--- NOTE | 2025-02-09 14:24 | P.PN ---
Progress Note - Text 79-year-old gentleman history of cellulitis of the right lower extremity involving the dorsal aspect of the foot and the right lower extremity. Patient had a venous ultrasound which was negative for DVT and no reflux was seen in the deep system. Patient is an IV antibiotic under care of infectious disease femoral pulses are palpable PT DP by the Doppler patient still has marked swelling of the right foot dorsal aspect and right lower extremity Plan is we do the CT of the right leg with contrast
--- NOTE | 2025-02-09 14:44 | CT ---
EXAMINATION TYPE: CT lower leg RT w con DATE OF EXAM: 02/09/2025 2:24 PM COMPARISON: None. CLINICAL INDICATION: Male, 79 years old with history of swelling redness weeping, right leg pain/swel ling TECHNIQUE: Contrast used:100 mL of Isovue 300 with IV Contrast, (none if empty) Oral contrast used: (none if empty) Axial images at 3 mm thick sections. Reconstructed images in the coronal and sagittal planes. FINDINGS: Right femoral head articulates with the acetabulum. Degenerative changes are within the right hip. No te is also made of degenerative changes within the left hip including subchondral cyst formation. No acute fractures are evident. Degenerative changes are noted at the right knee. No joint effusion i s evident. Right ankle appears intact. Degenerative change at first metatarsophalangeal joint space. There is diffuse soft tissue swelling present. Some mild increased density within the subcutaneous ti ssues is present compatible with edema. This is greater in the distal lower extremity. No suspicious abscess formation is evident. No cortical erosion to suggest underlying osteomyelitis. If there is stovall fficient clinical concern for osteomyelitis, nuclear medicine bone scan could be performed. Portions of the left lower extremity within the field of view appear normal. Some degenerative change s in the medial compartment left knee. Symphysis pubis is unremarkable. Sacroiliac joints and mild de generative changes. IMPRESSION: 1. NO ACUTE OSSEOUS ABNORMALITY RIGHT LOWER EXTREMITY. 2. DIFFUSE SOFT TISSUE SWELLING, GREATER WITHIN THE DISTAL RIGHT LOWER EXTREMITY. [facility], , 02/09/2025 2:41 PM
--- NOTE | 2025-02-09 20:35 | P.PN ---
Progress Note - Text Progress Note Date: 02/09/25 Chief Complaint: Right leg redness swelling Pleasant 79-year-old patient follows with Jennifer Wilson NP. Chronic medical conditions include hypertension, hyperlipidemia, chronic osteoarthritis specially lower back, CAD with stent 2005. History is obtained by patient's Rosi at the bedside. Patient has some cognitive impairment. Fever started 4 days ago. Significant chills and rigors. 2 days ago redness was noticed at the right leg. Decreased appetite. Admitted to the ER for cellulitis. Overnight redness extended up to the thigh. Swelling noted. February 07: Patient spiked fever. Getting Silvadene dressing with Ruben wrap. Nurse informed me there is a discrepancy between a temperature overall versus armpit which is likely higher. I have asked her to confirm and check a rectal temperature. P on IV cefazolin. Patient cellulitic lesions likely improving. Eating fair spoke at length with patient's Rosi at the bedside. February 08: Patient's right leg swelling with some edema. Slight oozing. Significant redness with blotchiness present. Being followed by Dr. Sharma from vascular and ID. Clindamycin is being added. Had received IV fluids. Also drinking quite a bit of fluids. Patient is fluid restricted. Will give some IV Lasix 20 mcg x 2 doses. Discussed with the Rosi at the bedside. Patient's temperatures are being done in the armpit. Temperatures are coming down. Silvadene cream. Ruben wrap February 09: Right leg remains red. Had a fever of 101.4 last night. Otherwise feels down. I did give her a dose of Lasix this morning. Dr. Sharma ordered a CT scan of the right leg. Came back unremarkable. This seems to be a severe case of cellulitis. Antibiotic has been switched over to daptomycin by ID. Patient not too keen on hospital food. feels bringing food from home. Ensure added Active Medications Acetaminophen (Acetaminophen Tab 325 Mg Tab) 650 mg PO Q6HR PRN PRN Reason: Mild Pain or Fever > 100.5 Last Admin: 02/09/25 08:13 Dose: 650 mg Aspirin (Aspirin 81 Mg) 81 mg PO DAILY [facility] Last Admin: 02/09/25 08:13 Dose: 81 mg Atenolol (Atenolol 25 Mg Tab) 25 mg PO DAILY [facility] Last Admin: 02/09/25 08:13 Dose: 25 mg Ezetimibe (Ezetimibe 10 Mg Tab) 10 mg PO W/SUPPER [facility] Last Admin: 02/09/25 17:38 Dose: 10 mg Enoxaparin Sodium (Enoxaparin 40 Mg/0.4 Ml Syringe) 40 mg SQ DAILY [facility] Last Admin: 02/09/25 08:13 Dose: 40 mg Gabapentin (Gabapentin 300 Mg Cap) 300 mg PO TID [facility] Last Admin: 02/09/25 16:37 Dose: 300 mg Daptomycin 350 mg/ Sodium (Chloride) 50 mls @ 100 mls/hr IVPB Q24HR [facility]; Protocol Last Admin: 02/09/25 13:30 Dose: 100 mls/hr Lisinopril (Lisinopril 20 Mg Tab) 20 mg PO DAILY@1500 [facility] Last Admin: 02/09/25 14:30 Dose: 20 mg Morphine Sulfate (Morphine Sulfate 4 Mg/Ml Syringe) 4 mg IVP Q4HR PRN PRN Reason: Pain Last Admin: 02/05/25 21:43 Dose: 4 mg Naloxone HCl (Naloxone 0.4 Mg/Ml 1 Ml Vial) 0.2 mg IV Q2M PRN PRN Reason: Opioid Reversal Psyllium Hydrophilic Mucilloid (Psyllium Husk 100% 6 Gm Packet) 6 gm PO DAILY [facility] Last Admin: 02/09/25 08:13 Dose: 6 gm Silver Sulfadiazine (Silver Sulfadiazine Cream 400 Gm 1 Applic Applic) 1 applic TOPICAL DAILY [facility]; Protocol Last Admin: 02/09/25 08:14 Dose: 1 applic Tramadol HCl (Tramadol 50 Mg Tab) 50 mg PO Q6H PRN PRN Reason: Moderate Pain (Scale 4 to 6) Last Admin: 02/06/25 08:42 Dose: 50 mg Tramadol HCl (Tramadol 50 Mg Tab) 50 mg PO TID [facility] Last Admin: 02/09/25 16:37 Dose: 50 mg Social history: Retired from [employer]. Smoked a pack a day for about 45 years stopped about 10 years ago alcohol occasionally Physical examination: VITAL SIGNS: Tmax 101.4 last night. Afebrile today. 17, 1 6 Jefe 95, 96% room air GENERAL: BMI 31.7, lying bed awake EYES: Pupils equal. Conjunctiva qiana l. HEENT: External appearance of nose and ears normal, oral cavity grossly normal. NECK: JVD not raised; masses not palpable. HEART: First and second heart sounds are normal; LUNGS: Respiratory rate normal; decreased breath sounds. ABDOMEN: Soft, nontender, liver spleen not palpable, no masses palpable. PSYCH: Answering simple questions. Mood affect normal l. MUSCULOSKELETAL:No Clubbing/cyanosis;muscles-grossly intact Extremities: Right leg with decreasing t edema. Redness blotchiness. Slow to improve INVESTIGATIONS, reviewed in the clinical context: Lower extremity CT with angio: [February 09] edema. No source of abscess February 09: Sodium 128 potassium 3.8 creatinine 0.61 February 08: White count 15.7 hemoglobin 11.2 platelets 114 sodium 126 potassium 3.7 creatinine 0.56 February 06: White count 13.8 hemoglobin 12.7 platelets 115 sodium 128 potassium 4.6 BUN 28 creatinine 0.91 February 05: White count 19.4 hemoglobin 13.8 sodium 123 potassium 4.5 BUN 36 creatinine 1.03 CRP 33.5 Foot, tibia-fibula x-ray: Nonspecific findings. Assessment plan: - Acute severe cellulitis/lymphangitis of the right lower extremity. Symptoms present for about 4 days. Reports in the last 2 days. Overnight symptoms got worse. Causing sepsis.: Slow to respond. Spiked a fever last night. I be Ancef and IV clindamycin discontinued today. Daptomycin added. - Severe sepsis from cellulitis: Improving slowly Received fluids. Antibiotic changed to daptomycin - Fluid overload from IV fluids and increased oral intake. Patient has been told to cut back on his fluid intake. IV Lasix. Fluid restriction Give another dose of IV Lasix today. - Hyponatremia with hypervolemia: Improving IV Lasix. Fluid restriction. Avoid free water - Hyperlipidemia Lipitor 80 mg nightly - Essential hypertension Vasotec. Tenormin - Osteoarthritis of the lumbar spine, with chronic pain Motrin. Ultram. Neurontin. - Mild cognitive impairment - Full code CT right lower extremity unremarkable. Additional dose of IV Lasix given. Antibiotics changed to daptomycin. Discussed with patient and . Dr. Sharma. Past Medical History Past Medical History: Hyperlipidemia, Hypertension History of Any Multi-Drug Resistant Organisms: None Reported Past Surgical History: Back Surgery Past Psychological History: No Psychological Hx Reported Smoking Status: Former smoker Past Alcohol Use History: Occasional Past Drug Use History: None Reported
--- NOTE | 2025-02-09 21:02 | P.PN ---
Subjective Progress Note Date: 02/09/25 Principal diagnosis: Reason for follow-up is right leg cellulitis Patient is a 79-year-old male with a past medical history significant for hypertension hyperlipidemia presenting to the hospital for evaluation of increasing pain swelling redness to right lower extremity has been diagnosed with a right leg cellulitis prompting this consultation. On today's evaluation that is 02/09/2025, patient did spike a fever last night of 101.4 F patient is afebrile this morning, patient is breathing comfortably and is currently on room air, patient denies having any chest pain and cough, patient denies nausea vomiting or diarrhea and no abdominal pain still having swelling and redness to right lower extremity denies any worsening pain. No CBC was done today creatinine 0.61 Objective - Vital Signs Vital signs: Vital Signs Temp 99 F 02/09/25 07:43 Pulse 99 02/09/25 09:52 Resp 17 02/09/25 09:52 BP 162/75 02/09/25 07:43 Pulse Ox 96 02/09/25 07:43 FiO2 Intake & Output 02/08/25 02/09/25 02/09/25 18:59 06:59 18:59 Intake Total 100 150 Output Total 500 200 Balance 100 -350 -200 Intake: Intake, IV Titration 150 Amount Clindamycin 900 mg In 50 Dextrose 5% in Water 50 ml @ 50 mls/hr IVPB Q8HR [facility] Rx#:[id number] ceFAZolin 3 gm In Sodium 100 Chloride 0.9% 100 ml @ 200 mls/hr IVPB Q8HR [facility] Rx#:[id number] Oral 100 Output: Urine 500 200 Other: # Voids 1 1 1 # Bowel Movements 1 - Exam GENERAL DESCRIPTION: An elderly male lying in bed in no distress RESPIRATORY SYSTEM: Unlabored breathing , decreased breath sounds at bases HEART: S1 S2 regular rate and rhythm , ABDOMEN: Soft , no tenderness EXTREMITIES: Right lower extremity/significant swelling redness slightly decreased - Labs CBC & Chem 7: 02/08/25 02:39 02/09/25 06:22 Labs: Abnormal Lab Results - Last 24 Hours (Table) 02/09/25 Range/Units 06:22 Sodium 128 L (137-145) mmol/L Chloride 91 L (98-107) mmol/L Carbon Dioxide 31 H (22-30) mmol/L Creatinine 0.61 L (0.66-1.25) mg/dL Glucose 104 H (74-99) mg/dL Calcium 8.0 L (8.4-10.2) mg/dL Microbiology - Last 24 Hours (Table) 02/05/25 20:33 Blood Culture - Preliminary Blood Assessment and Plan (1) Sepsis Current Visit: Yes Status: Acute Code(s): A41.9 - SEPSIS, UNSPECIFIED ORGANISM SNOMED Code(s): 38365191 (2) Cellulitis of right leg Current Visit: Yes Status: Acute Code(s): L03.115 - CELLULITIS OF RIGHT LOWER LIMB SNOMED Code(s): 54776504173886550 Plan: 1patient presented hospital with sepsis in this patient who did have fever tachycardia elevated white count meeting currently for SIRS source is right lower extremity cellulitis in this patient who did have diffuse swelling redness likely streptococcal disease 2-- Doppler of the lower extremity negative, patient advised to continue Ruben wrap from just over the toe to below the knee. 3patient did have a fever last evening and also significant hide noticing the swelling and redness CT has been discussed with the vascular team to rule out any abscess we will discontinue cefazolin and clindamycin and start the patient on daptomycin and see clinical response were discussed in detail with the vascular surgeon as well as with the at the bedside Dictation was produced using [employer] dictation software. please excuse any grammatical, word or spelling errors. Time with Patient: Less than 30
--- NOTE | 2025-02-10 15:12 | P.PN ---
Subjective Progress Note Date: 02/10/25 Principal diagnosis: Reason for follow-up is right leg cellulitis Patient is a 79-year-old male with a past medical history significant for hypertension hyperlipidemia presenting to the hospital for evaluation of increasing pain swelling redness to right lower extremity has been diagnosed with a right leg cellulitis prompting this consultation. On today's evaluation that is 02/10/2025, Patient did have improvement in his fever pattern and patient is afebrile this morning patient denies having any chest pain shortness of breath or cough, the patient is currently on room air, patient denies any abdominal pain no diarrhea no nausea no vomiting denies any worsening pain to the right lower extremity. No new lab has been obtained today blood culture has been negative CT did not show any abscess Objective - Vital Signs Vital signs: Vital Signs Temp 98.5 F 02/10/25 15:04 Pulse 86 02/10/25 15:04 Resp 16 02/10/25 15:04 BP 134/69 02/10/25 15:04 Pulse Ox 97 02/10/25 15:04 FiO2 Intake & Output 02/09/25 02/10/25 02/10/25 18:59 06:59 18:59 Intake Total 100 Output Total 200 Balance -100 Intake: Oral 100 Output: Urine 200 Other: # Voids 1 3 - Exam GENERAL DESCRIPTION: An elderly male lying in bed in no distress RESPIRATORY SYSTEM: Unlabored breathing , decreased breath sounds at bases HEART: S1 S2 regular rate and rhythm , ABDOMEN: Soft , no tenderness EXTREMITIES: Right lower extremity/swelling redness about the same - Labs CBC & Chem 7: 02/08/25 02:39 02/09/25 06:22 Assessment and Plan (1) Sepsis Current Visit: Yes Status: Acute Code(s): A41.9 - SEPSIS, UNSPECIFIED ORGANISM SNOMED Code(s): 83139946 (2) Cellulitis of right leg Current Visit: Yes Status: Acute Code(s): L03.115 - CELLULITIS OF RIGHT LOWER LIMB SNOMED Code(s): 89544544546158567 Plan: 1patient presented hospital with sepsis in this patient who did have fever tachycardia elevated white count meeting currently for SIRS source is right lower extremity cellulitis in this patient who did have diffuse swelling redness likely streptococcal disease 2-- Doppler of the lower extremity negative, patient advised to continue Ruben wrap from just over the toe to below the knee. 3patient did have resolution of his fever CT did not show any abscess we will continue with the daptomycin at this point reevaluate the leg tomorrow at the bedside multiple question answered will likely need IV antibiotics on discharge Dictation was produced using [employer] dictation software. please excuse any grammatical, word or spelling errors. Time with Patient: Less than 30
[2025-02-10 17:05] LABS: HCT 36.5 % (39.6-50.0); HGB 12.5 g/dL (13.0-17.0); MCH 28.7 pg (27.0-32.0); MCHC 34.2 g/dL (32.0-37.0); MCV 83.7 fL (80.0-97.0); Mean Platelet Volume 9.9 fL (9.5-12.2); RBC 4.36 10*6/uL (4.40-5.60); RDW 13.4 % (11.5-14.5); WBC 20.56 10*3/uL (4.50-10.00)
[2025-02-10 17:08] LABS: Platelet Count 199 10*3/uL (140-440)
[2025-02-10 17:23] LABS: African American GFR (CKD) >90 (>60 ml/min/1.73 sqM); Anion Gap 4 mmol/L; Blood Urea Nitrogen 15 mg/dL (9-20); Calcium 8.4 mg/dL (8.4-10.2); Carbon Dioxide 30 mmol/L (22-30); Chloride 94 mmol/L (98-107); Glucose 121 mg/dL (74-99); Non-African American GFR(CKD) >90 (>60 ml/min/1.73 sqM); Potassium 4.5 mmol/L (3.5-5.1); Sodium 128 mmol/L (137-145)
--- NOTE | 2025-02-10 18:59 | P.PN ---
Progress Note - Text Progress Note Date: 02/10/25 Chief Complaint: Right leg redness swelling Pleasant 79-year-old patient follows with Jennifer Wilson NP. Chronic medical conditions include hypertension, hyperlipidemia, chronic osteoarthritis specially lower back, CAD with stent 2005. History is obtained by patient's Rosi at the bedside. Patient has some cognitive impairment. Fever started 4 days ago. Significant chills and rigors. 2 days ago redness was noticed at the right leg. Decreased appetite. Admitted to the ER for cellulitis. Overnight redness extended up to the thigh. Swelling noted. February 07: Patient spiked fever. Getting Silvadene dressing with Ruben wrap. Nurse informed me there is a discrepancy between a temperature overall versus armpit which is likely higher. I have asked her to confirm and check a rectal temperature. P on IV cefazolin. Patient cellulitic lesions likely improving. Eating fair spoke at length with patient's Rosi at the bedside. February 08: Patient's right leg swelling with some edema. Slight oozing. Significant redness with blotchiness present. Being followed by Dr. Sharma from vascular and ID. Clindamycin is being added. Had received IV fluids. Also drinking quite a bit of fluids. Patient is fluid restricted. Will give some IV Lasix 20 mcg x 2 doses. Discussed with the Rosi at the bedside. Patient's temperatures are being done in the armpit. Temperatures are coming down. Silvadene cream. Ruben wrap February 09: Right leg remains red. Had a fever of 101.4 last night. Otherwise feels down. I did give her a dose of Lasix this morning. Dr. Sharma ordered a CT scan of the right leg. Came back unremarkable. This seems to be a severe case of cellulitis. Antibiotic has been switched over to daptomycin by ID. Patient not too keen on hospital food. feels bringing food from home. Ensure added February 10: Redness in the right leg persist. Was started on daptomycin yesterday.: No fever last 24 hours. Eating about 50%. Reminded the patient to be up in the chair. Discussed with Dr. Sharma from vascular. Active Medications Acetaminophen (Acetaminophen Tab 325 Mg Tab) 650 mg PO Q6HR PRN PRN Reason: Mild Pain or Fever > 100.5 Last Admin: 02/09/25 08:13 Dose: 650 mg Aspirin (Aspirin 81 Mg) 81 mg PO DAILY [facility] Last Admin: 02/10/25 09:18 Dose: 81 mg Atenolol (Atenolol 25 Mg Tab) 25 mg PO DAILY [facility] Last Admin: 02/10/25 09:16 Dose: 25 mg Ezetimibe (Ezetimibe 10 Mg Tab) 10 mg PO W/SUPPER [facility] Last Admin: 02/10/25 18:15 Dose: 10 mg Enoxaparin Sodium (Enoxaparin 40 Mg/0.4 Ml Syringe) 40 mg SQ DAILY [facility] Last Admin: 02/10/25 09:16 Dose: 40 mg Gabapentin (Gabapentin 300 Mg Cap) 300 mg PO TID [facility] Last Admin: 02/10/25 15:14 Dose: 300 mg Daptomycin 350 mg/ Sodium (Chloride) 50 mls @ 100 mls/hr IVPB Q24HR [facility]; Protocol Last Admin: 02/10/25 09:27 Dose: 100 mls/hr Lisinopril (Lisinopril 20 Mg Tab) 20 mg PO DAILY@1500 [facility] Last Admin: 02/10/25 15:14 Dose: 20 mg Morphine Sulfate (Morphine Sulfate 4 Mg/Ml Syringe) 4 mg IVP Q4HR PRN PRN Reason: Pain Last Admin: 02/05/25 21:43 Dose: 4 mg Naloxone HCl (Naloxone 0.4 Mg/Ml 1 Ml Vial) 0.2 mg IV Q2M PRN PRN Reason: Opioid Reversal Psyllium Hydrophilic Mucilloid (Psyllium Husk 100% 6 Gm Packet) 6 gm PO DAILY [facility] Last Admin: 02/10/25 09:17 Dose: 6 gm Silver Sulfadiazine (Silver Sulfadiazine Cream 400 Gm 1 Applic Applic) 1 applic TOPICAL DAILY [facility]; Protocol Last Admin: 02/10/25 09:17 Dose: Not Given Tramadol HCl (Tramadol 50 Mg Tab) 50 mg PO Q6H PRN PRN Reason: Moderate Pain (Scale 4 to 6) Last Admin: 02/06/25 08:42 Dose: 50 mg Tramadol HCl (Tramadol 50 Mg Tab) 50 mg PO TID [facility] Last Admin: 02/10/25 15:11 Dose: 50 mg Social history: Retired from [employer] Smoked a pack a day for about 45 years stopped about 10 years ago alcohol occasionally Physical examination: VITAL SIGNS: 98.5, 86, 16, 134 x 69, 97% room air GENERAL: Laying in bed, comfortable EYES: Pupils equal. Conjunctiva qiana l. HEENT: External appearance of nose and ears normal, oral cavity grossly normal. NECK: JVD not raised; masses not palpable. HEART: First and second heart sounds are normal; LUNGS: Respiratory rate normal; decreased breath sounds. ABDOMEN: Soft, nontender, liver spleen not palpable, no masses palpable. PSYCH: Answering simple questions. Mood affect normal l. MUSCULOSKELETAL:No Clubbing/cyanosis;muscles-grossly intact Extremities: Right leg with decreasing t edema. Redness blotchiness. INVESTIGATIONS, reviewed in the clinical context: February 10: White count 20.5 hemoglobin 12.5 platelets 199 sodium 128 potassium 4.5 BUN [address] with angio: [February 09] edema. No source of abscess February 09: Sodium 128 potassium 3.8 creatinine 0.61 February 08: White count 15.7 hemoglobin 11.2 platelets 114 sodium 126 potassium 3.7 creatinine 0.56 February 06: White count 13.8 hemoglobin 12.7 platelets 115 sodium 128 potassium 4.6 BUN 28 creatinine 0.91 February 05: White count 19.4 hemoglobin 13.8 sodium 123 potassium 4.5 BUN 36 creatinine 1.03 CRP 33.5 Foot, tibia-fibula x-ray: Nonspecific findings. Assessment plan: - Acute severe cellulitis/lymphangitis of the right lower extremity. [Symptoms present for about 4 days prior to presentation. Reports in the last 2 days. Overnight symptoms got worse. Causing sepsis.:] Slow to respond. No fever in the last 24 hours. IV daptomycin started yesterday. Continue local care. - Severe sepsis from cellulitis: Fever has come down I he daptomycin - Fluid overload from IV fluids and increased oral intake. Patient has been told to cut back on his fluid intake. Received IV Lasix. Fluid restriction - Hyponatremia with hypervolemia: Improving IV Lasix. Fluid restriction. Avoid free water - Hyperlipidemia Lipitor 80 mg nightly - Essential hypertension Vasotec. Tenormin - Osteoarthritis of the lumbar spine, with chronic pain Motrin. Ultram. Neurontin. - Mild cognitive impairment - Full code On IV daptomycin. No fever over 24 hours. Continue current treatment plan. Patient reminded to be up in the chair. Past Medical History Past Medical History: Hyperlipidemia, Hypertension History of Any Multi-Drug Resistant Organisms: None Reported Past Surgical History: Back Surgery Past Psychological History: No Psychological Hx Reported Smoking Status: Former smoker Past Alcohol Use History: Occasional Past Drug Use History: None Reported
[2025-02-11] MEDS: FUROSEMIDE 10 MG/ML 2 ML VIAL IV ONE (19:54)
--- NOTE | 2025-02-11 23:19 | P.PN ---
Progress Note - Text Progress Note Date: 02/11/25 Chief Complaint: Right leg redness swelling Pleasant 79-year-old patient follows with Jennifer Wilson NP. Chronic medical conditions include hypertension, hyperlipidemia, chronic osteoarthritis specially lower back, CAD with stent 2005. History is obtained by patient's Rosi at the bedside. Patient has some cognitive impairment. Fever started 4 days ago. Significant chills and rigors. 2 days ago redness was noticed at the right leg. Decreased appetite. Admitted to the ER for cellulitis. Overnight redness extended up to the thigh. Swelling noted. February 07: Patient spiked fever. Getting Silvadene dressing with Ruben wrap. Nurse informed me there is a discrepancy between a temperature overall versus armpit which is likely higher. I have asked her to confirm and check a rectal temperature. P on IV cefazolin. Patient cellulitic lesions likely improving. Eating fair spoke at length with patient's Rosi at the bedside. February 08: Patient's right leg swelling with some edema. Slight oozing. Significant redness with blotchiness present. Being followed by Dr. Sharma from vascular and ID. Clindamycin is being added. Had received IV fluids. Also drinking quite a bit of fluids. Patient is fluid restricted. Will give some IV Lasix 20 mcg x 2 doses. Discussed with the Rosi at the bedside. Patient's temperatures are being done in the armpit. Temperatures are coming down. Silvadene cream. Ruben wrap February 09: Right leg remains red. Had a fever of 101.4 last night. Otherwise feels down. I did give her a dose of Lasix this morning. Dr. Sharma ordered a CT scan of the right leg. Came back unremarkable. This seems to be a severe case of cellulitis. Antibiotic has been switched over to daptomycin by ID. Patient not too keen on hospital food. feels bringing food from home. Ensure added February 10: Redness in the right leg persist. Was started on daptomycin yesterday.: No fever last 24 hours. Eating about 50%. Reminded the patient to be up in the chair. Discussed with Dr. Sharma from vascular. February 11: Some redness present in the right leg. Some edema present. Otherwise a dose of Lasix ordered. Dr. Sharma did the roof ball of the right foot scab and got some deep cultures. Patient remained afebrile. Eating better. Discussed with the patient and Active Medications Acetaminophen (Acetaminophen Tab 325 Mg Tab) 650 mg PO Q6HR PRN PRN Reason: Mild Pain or Fever > 100.5 Last Admin: 02/09/25 08:13 Dose: 650 mg Aspirin (Aspirin 81 Mg) 81 mg PO DAILY [facility] Last Admin: 02/11/25 09:10 Dose: 81 mg Atenolol (Atenolol 25 Mg Tab) 25 mg PO DAILY [facility] Last Admin: 02/11/25 09:06 Dose: 25 mg Ezetimibe (Ezetimibe 10 Mg Tab) 10 mg PO W/SUPPER [facility] Last Admin: 02/11/25 16:39 Dose: 10 mg Enoxaparin Sodium (Enoxaparin 40 Mg/0.4 Ml Syringe) 40 mg SQ DAILY [facility] Last Admin: 02/11/25 09:06 Dose: 40 mg Gabapentin (Gabapentin 300 Mg Cap) 300 mg PO TID [facility] Last Admin: 02/11/25 21:48 Dose: 300 mg Daptomycin 350 mg/ Sodium (Chloride) 50 mls @ 100 mls/hr IVPB Q24HR [facility]; Protocol Last Admin: 02/11/25 09:17 Dose: 100 mls/hr Lisinopril (Lisinopril 20 Mg Tab) 20 mg PO DAILY@1500 [facility] Last Admin: 02/11/25 15:29 Dose: 20 mg Morphine Sulfate (Morphine Sulfate 4 Mg/Ml Syringe) 4 mg IVP Q4HR PRN PRN Reason: Pain Last Admin: 02/05/25 21:43 Dose: 4 mg Naloxone HCl (Naloxone 0.4 Mg/Ml 1 Ml Vial) 0.2 mg IV Q2M PRN PRN Reason: Opioid Reversal Psyllium Hydrophilic Mucilloid (Psyllium Husk 100% 6 Gm Packet) 6 gm PO DAILY [facility] Last Admin: 02/11/25 09:07 Dose: Not Given Tramadol HCl (Tramadol 50 Mg Tab) 50 mg PO Q6H PRN PRN Reason: Moderate Pain (Scale 4 to 6) Last Admin: 02/06/25 08:42 Dose: 50 mg Tramadol HCl (Tramadol 50 Mg Tab) 50 mg PO TID [facility] Last Admin: 02/11/25 21:48 Dose: 50 mg Social history: Retired from [employer]. Smoked a pack a day for about 45 years stopped about 10 years ago alcohol occasionally Physical examination: VITAL SIGNS: 97.7, 88, 16, 144 x 74, 97% room air GENERAL: Laying in bed, comfortable EYES: Pupils equal. Conjunctiva qiana l. HEENT: External appearance of nose and ears normal, oral cavity grossly normal. NECK: JVD not raised; masses not palpable. HEART: First and second heart sounds are normal; LUNGS: Respiratory rate normal; decreased breath sounds. ABDOMEN: Soft, nontender, liver spleen not palpable, no masses palpable. PSYCH: Answering simple questions. Mood affect normal l. MUSCULOSKELETAL:No Clubbing/cyanosis;muscles-grossly intact Extremities: Dressing of the right leg. Redness going up to the thigh. INVESTIGATIONS, reviewed in the clinical context: February 10: White count 20.5 hemoglobin 12.5 platelets 199 sodium 128 potassium 4.5 BUN 15 creatinine [address] with angio: [February 09] edema. No source of abscess February 09: Sodium 128 potassium 3.8 creatinine 0.61 February 08: White count 15.7 hemoglobin 11.2 platelets 114 sodium 126 potassium 3.7 creatinine 0.56 February 06: White count 13.8 hemoglobin 12.7 platelets 115 sodium 128 potassium 4.6 BUN 28 creatinine 0.91 February 05: White count 19.4 hemoglobin 13.8 sodium 123 potassium 4.5 BUN 36 creatinine 1.03 CRP 33.5 Foot, tibia-fibula x-ray: Nonspecific findings. Assessment plan: - Acute severe cellulitis/lymphangitis of the right lower extremity. [Symptoms present for about 4 days prior to presentation. Reports in the last 2 days. Overnight symptoms got worse. Causing sepsis.:] Improving but slowly. No fever in the last 48 hours. IV daptomycin - Severe sepsis from cellulitis: Fever resolved I he daptomycin - Fluid overload from IV fluids and increased oral intake. Patient has been told to cut back on his fluid intake. Received IV Lasix. Fluid restriction - Hyponatremia with hypervolemia: Improving IV Lasix. Fluid restriction. Avoid free water - Hyperlipidemia Lipitor 80 mg nightly - Essential hypertension Vasotec. Tenormin - Osteoarthritis of the lumbar spine, with chronic pain Motrin. Ultram. Neurontin. - Mild cognitive impairment - Full code On IV daptomycin. No fever. Repeat labs. Discussed Past Medical History Past Medical History: Hyperlipidemia, Hypertension History of Any Multi-Drug Resistant Organisms: None Reported Past Surgical History: Back Surgery Past Psychological History: No Psychological Hx Reported Smoking Status: Former smoker Past Alcohol Use History: Occasional Past Drug Use History: None Reported
[2025-02-12 03:47] LABS: Basophils # (A) 0.09 10*3/uL (0.00-0.10); Basophils % (A) 0.6 %; Eosinophils # (A) 0.59 10*3/uL (0.04-0.35); Eosinophils % (A) 3.8 %; HCT 36.7 % (39.6-50.0); HGB 12.4 g/dL (13.0-17.0); Lymphocytes # (A) 1.27 10*3/uL (0.90-5.00); Lymphocytes % (A) 8.1 %; MCH 28.3 pg (27.0-32.0); MCHC 33.8 g/dL (32.0-37.0); MCV 83.8 fL (80.0-97.0); Mean Platelet Volume 9.5 fL (9.5-12.2); Monocytes # (A) 1.08 10*3/uL (0.20-1.00); Monocytes % (A) 6.9 %; Neutrophils # (A) 12.19 10*3/uL (1.80-7.70); Neutrophils % (A) 77.5 %; Platelet Count 273 10*3/uL (140-440); RBC 4.38 10*6/uL (4.40-5.60); RDW 13.4 % (11.5-14.5); WBC 15.71 10*3/uL (4.50-10.00)
[2025-02-12 04:04] LABS: African American GFR (CKD) >90 (>60 ml/min/1.73 sqM); Anion Gap 7 mmol/L; Blood Urea Nitrogen 17 mg/dL (9-20); Calcium 8.6 mg/dL (8.4-10.2); Carbon Dioxide 27 mmol/L (22-30); Chloride 94 mmol/L (98-107); Glucose 111 mg/dL (74-99); Non-African American GFR(CKD) >90 (>60 ml/min/1.73 sqM); Potassium 4.8 mmol/L (3.5-5.1); Sodium 128 mmol/L (137-145)
[2025-02-12 15:40] VITALS: BMI 31.7
--- NOTE | 2025-02-12 15:49 | P.PN ---
Subjective Progress Note Date: 02/11/25 Principal diagnosis: Reason for follow-up is right leg cellulitis Patient is a 79-year-old male with a past medical history significant for hypertension hyperlipidemia presenting to the hospital for evaluation of increasing pain swelling redness to right lower extremity has been diagnosed with a right leg cellulitis prompting this consultation. On today's evaluation that is 02/11/2025,the patient denies any fever or any chills, patient is breathing comfortably on room air, the patient denies chest pain shortness of breath and no significant cough, patient denies abdominal pain, no nausea vomiting or diarrhea. Pain to lower extremity has decreased in intensity. No new labs has been obtained today Objective - Vital Signs Vital signs: Vital Signs Temp 98.4 F 02/11/25 07:44 Pulse 92 02/11/25 07:44 Resp 17 02/11/25 07:44 BP 131/68 02/11/25 07:44 Pulse Ox 96 02/11/25 07:44 FiO2 Intake & Output 02/10/25 02/11/25 02/11/25 18:59 06:59 18:59 Intake Total 290 0 Balance 290 0 Intake: Intake, IV Titration 50 Amount DAPTOmycin 350 mg In 50 Sodium Chloride 0.9% 50 ml @ 100 mls/hr IVPB Q24HR [facility] Rx#:[id number] Oral 240 0 Other: Voiding Method Toilet Toilet Urinal # Voids 1 # Bowel Movements 1 - Exam GENERAL DESCRIPTION: An elderly male lying in bed in no distress RESPIRATORY SYSTEM: Unlabored breathing , decreased breath sounds at bases HEART: S1 S2 regular rate and rhythm , ABDOMEN: Soft , no tenderness EXTREMITIES: Right lower extremity/swelling redness about the same - Labs CBC & Chem 7: 02/12/25 03:05 02/12/25 03:05 Labs: Abnormal Lab Results - Last 24 Hours (Table) 02/10/25 02/10/25 Range/Units 16:26 16:26 WBC 20.56 H (4.50-10.00) 10*3/uL RBC 4.36 L (4.40-5.60) 10*6/uL Hgb 12.5 L (13.0-17.0) g/dL Hct 36.5 L (39.6-50.0) % Sodium 128 L (137-145) mmol/L Chloride 94 L (98-107) mmol/L Creatinine 0.59 L (0.66-1.25) mg/dL Glucose 121 H (74-99) mg/dL Microbiology - Last 24 Hours (Table) 02/05/25 20:33 Blood Culture - Final Blood Assessment and Plan (1) Sepsis Current Visit: Yes Status: Acute Code(s): A41.9 - SEPSIS, UNSPECIFIED ORGANISM SNOMED Code(s): 75284962 (2) Cellulitis of right leg Current Visit: Yes Status: Acute Code(s): L03.115 - CELLULITIS OF RIGHT LOWER LIMB SNOMED Code(s): 31993182810844582 Plan: 1patient presented hospital with sepsis in this patient who did have fever tachycardia elevated white count meeting currently for SIRS source is right lower extremity cellulitis in this patient who did have diffuse swelling redness likely streptococcal disease 2-- Doppler of the lower extremity negative, patient advised to continue Ruben wrap from just over the toe to below the knee. 3patient did have resolution of his fever CT did not show any abscess 4we will continue with the daptomycin at this point did have a infected callus which has been cultured results will be followed Dictation was produced using [employer] dictation software. please excuse any grammatical, word or spelling errors. Time with Patient: Less than 30
--- NOTE | 2025-02-12 15:51 | P.PN ---
Subjective Progress Note Date: 02/12/25 Principal diagnosis: Reason for follow-up is right leg cellulitis Patient is a 79-year-old male with a past medical history significant for hypertension hyperlipidemia presenting to the hospital for evaluation of increasing pain swelling redness to right lower extremity has been diagnosed with a right leg cellulitis prompting this consultation. On today's evaluation that is 02/12/2025,the patient remains to be afebrile, patient is on 2 L nasal cannula supplemental oxygen and denies any shortness of breath no chest pain or cough.Patient denies having any nausea or vomiting, no abdominal pain and no diarrhea pain and swelling to the right leg has decrease intensity. Patient white count is down to 15.71, creatinine 0.66 cultures currently pending Objective - Vital Signs Vital signs: Vital Signs Temp 97.9 F 02/12/25 08:34 Pulse 86 02/12/25 08:34 Resp 18 02/11/25 14:00 BP 121/65 02/12/25 08:34 Pulse Ox 97 02/12/25 08:34 FiO2 Intake & Output 02/11/25 02/12/25 02/12/25 18:59 06:59 18:59 Intake Total 500 Balance 500 Intake: Oral 500 Other: Voiding Method Toilet Toilet Urinal Urinal # Voids 2 1 - Exam GENERAL DESCRIPTION: An elderly male lying in bed in no distress RESPIRATORY SYSTEM: Unlabored breathing , decreased breath sounds at bases HEART: S1 S2 regular rate and rhythm , ABDOMEN: Soft , no tenderness EXTREMITIES: Right lower extremity/swelling has slightly decreased in intensity - Labs CBC & Chem 7: 02/12/25 03:05 02/12/25 03:05 Labs: Abnormal Lab Results - Last 24 Hours (Table) 02/12/25 02/12/25 Range/Units 03:05 03:05 WBC 15.71 H (4.50-10.00) 10*3/uL RBC 4.38 L (4.40-5.60) 10*6/uL Hgb 12.4 L (13.0-17.0) g/dL Hct 36.7 L (39.6-50.0) % Immature Gran # 0.49 H (0.00-0.04) 10*3/uL Neutrophils # 12.19 H (1.80-7.70) 10*3/uL Monocytes # 1.08 H (0.20-1.00) 10*3/uL Eosinophils # 0.59 H (0.04-0.35) 10*3/uL Sodium 128 L (137-145) mmol/L Chloride 94 L (98-107) mmol/L Glucose 111 H (74-99) mg/dL Microbiology - Last 24 Hours (Table) 02/11/25 12:15 Gram Stain - Preliminary Foot - Right Wound Culture - Preliminary Assessment and Plan (1) Sepsis Current Visit: Yes Status: Acute Code(s): A41.9 - SEPSIS, UNSPECIFIED ORGANISM SNOMED Code(s): 02097374 (2) Cellulitis of right leg Current Visit: Yes Status: Acute Code(s): L03.115 - CELLULITIS OF RIGHT LOWER LIMB SNOMED Code(s): 64033619098000137 Plan: 1patient presented hospital with sepsis in this patient who did have fever tachycardia elevated white count meeting currently for SIRS source is right lower extremity cellulitis in this patient who did have diffuse swelling redness likely streptococcal disease 2-- Doppler of the lower extremity negative, patient advised to continue Ruben wrap from just over the toe to below the knee. 3patient did have resolution of his fever CT did not show any abscess 4patient has shown some clinical provide white count is trending down cultures are currently pending we will continue with the daptomycin with the discharge antibiotic on the basis of culture may or may not be IV this was discussed in detail with the at the bedside as well as admitting physician Dictation was produced using [employer] dictation software. please excuse any grammatical, word or spelling errors. Time with Patient: Less than 30
--- NOTE | 2025-02-12 16:06 | P.PN ---
Progress Note - Text Progress Note Date: 02/12/25 Chief Complaint: Right leg redness swelling Pleasant 79-year-old patient follows with Jennifer Wilson NP. Chronic medical conditions include hypertension, hyperlipidemia, chronic osteoarthritis specially lower back, CAD with stent 2005. History is obtained by patient's Rosi at the bedside. Patient has some cognitive impairment. Fever started 4 days ago. Significant chills and rigors. 2 days ago redness was noticed at the right leg. Decreased appetite. Admitted to the ER for cellulitis. Overnight redness extended up to the thigh. Swelling noted. February 07: Patient spiked fever. Getting Silvadene dressing with Ruben wrap. Nurse informed me there is a discrepancy between a temperature overall versus armpit which is likely higher. I have asked her to confirm and check a rectal temperature. P on IV cefazolin. Patient cellulitic lesions likely improving. Eating fair spoke at length with patient's Rosi at the bedside. February 08: Patient's right leg swelling with some edema. Slight oozing. Significant redness with blotchiness present. Being followed by Dr. Sharma from vascular and ID. Clindamycin is being added. Had received IV fluids. Also drinking quite a bit of fluids. Patient is fluid restricted. Will give some IV Lasix 20 mcg x 2 doses. Discussed with the Rosi at the bedside. Patient's temperatures are being done in the armpit. Temperatures are coming down. Silvadene cream. Ruben wrap February 09: Right leg remains red. Had a fever of 101.4 last night. Otherwise feels down. I did give her a dose of Lasix this morning. Dr. Sharma ordered a CT scan of the right leg. Came back unremarkable. This seems to be a severe case of cellulitis. Antibiotic has been switched over to daptomycin by ID. Patient not too keen on hospital food. feels bringing food from home. Ensure added February 10: Redness in the right leg persist. Was started on daptomycin yesterday.: No fever last 24 hours. Eating about 50%. Reminded the patient to be up in the chair. Discussed with Dr. Sharma from vascular. February 11: Some redness present in the right leg. Some edema present. Otherwise a dose of Lasix ordered. Dr. Sharma did the roof ball of the right foot scab and got some deep cultures. Patient remained afebrile. Eating better. Discussed with the patient and February 12: Redness coming down. Still some swelling. Will give another dose of Lasix. Patient had no fever for over 48 hours. Discussed with ID. Plan is discharge with Zyvox. Getting IV daptomycin. Active Medications Acetaminophen (Acetaminophen Tab 325 Mg Tab) 650 mg PO Q6HR PRN PRN Reason: Mild Pain or Fever > 100.5 Last Admin: 02/09/25 08:13 Dose: 650 mg Aspirin (Aspirin 81 Mg) 81 mg PO DAILY [facility] Last Admin: 02/12/25 09:25 Dose: 81 mg Atenolol (Atenolol 25 Mg Tab) 25 mg PO DAILY [facility] Last Admin: 02/12/25 09:25 Dose: 25 mg Ezetimibe (Ezetimibe 10 Mg Tab) 10 mg PO W/SUPPER [facility] Last Admin: 02/11/25 16:39 Dose: 10 mg Enoxaparin Sodium (Enoxaparin 40 Mg/0.4 Ml Syringe) 40 mg SQ DAILY [facility] Last Admin: 02/12/25 09:24 Dose: 40 mg Gabapentin (Gabapentin 300 Mg Cap) 300 mg PO TID [facility] Last Admin: 02/12/25 09:23 Dose: 300 mg Daptomycin 350 mg/ Sodium (Chloride) 50 mls @ 100 mls/hr IVPB Q24HR [facility]; Protocol Last Admin: 02/12/25 09:24 Dose: 100 mls/hr Lisinopril (Lisinopril 20 Mg Tab) 20 mg PO DAILY@1500 [facility] Last Admin: 02/11/25 15:29 Dose: 20 mg Morphine Sulfate (Morphine Sulfate 4 Mg/Ml Syringe) 4 mg IVP Q4HR PRN PRN Reason: Pain Last Admin: 02/12/25 11:49 Dose: 4 mg Naloxone HCl (Naloxone 0.4 Mg/Ml 1 Ml Vial) 0.2 mg IV Q2M PRN PRN Reason: Opioid Reversal Psyllium Hydrophilic Mucilloid (Psyllium Husk 100% 6 Gm Packet) 6 gm PO DAILY [facility] Last Admin: 02/12/25 09:26 Dose: Not Given Tramadol HCl (Tramadol 50 Mg Tab) 50 mg PO Q6H PRN PRN Reason: Moderate Pain (Scale 4 to 6) Last Admin: 02/06/25 08:42 Dose: 50 mg Tramadol HCl (Tramadol 50 Mg Tab) 50 mg PO TID [facility] Last Admin: 02/12/25 09:24 Dose: 50 mg Social history: Retired from [employer]. Smoked a pack a day for about 45 years stopped about 10 years ago alcohol occasionally Physical examination: VITAL SIGNS: 97.9, 86, 16, 121 x 65, 97% room air GENERAL: Laying in bed, comfortable EYES: Pupils equal. Conjunctiva qiana l. HEENT: External appearance of nose and ears normal, oral cavity grossly normal. NECK: JVD not raised; masses not palpable. HEART: First and second heart sounds are normal; LUNGS: Respiratory rate normal; decreased breath sounds. ABDOMEN: Soft, nontender, liver spleen not palpable, no masses palpable. PSYCH: Answering simple questions. Mood affect normal l. MUSCULOSKELETAL:No Clubbing/cyanosis;muscles-grossly intact Extremities: Redness coming down. INVESTIGATIONS, reviewed in the clinical context: February 12: White count 15.7 hemoglobin 12.4 sodium 128 potassium 4.8 creatinine 0.66 February 10: White count 20.5 hemoglobin 12.5 platelets 199 sodium 128 potassium 4.5 BUN [address] with angio: [February 09] edema. No source of abscess February 09: Sodium 128 potassium 3.8 creatinine 0.61 February 08: White count 15.7 hemoglobin 11.2 platelets 114 sodium 126 potassium 3.7 creatinine 0.56 February 06: White count 13.8 hemoglobin 12.7 platelets 115 sodium 128 potassium 4.6 BUN 28 creatinine 0.91 February 05: White count 19.4 hemoglobin 13.8 sodium 123 potassium 4.5 BUN 36 creatinine 1.03 CRP 33.5 Foot, tibia-fibula x-ray: Nonspecific findings. Assessment plan: - Acute severe cellulitis/lymphangitis of the right lower extremity. [Symptoms present for about 4 days prior to presentation. Reports in the last 2 days. Overnight symptoms got worse. Causing sepsis.:] Improving No fever IV daptomycin - Severe sepsis from cellulitis: Fever resolved I he daptomycin - Fluid overload from IV fluids and increased oral intake. Patient has been told to cut back on his fluid intake. Getting Lasix - Hyponatremia with hypervolemia: Improving IV Lasix. Fluid restriction. Avoid free water - Hyperlipidemia Lipitor 80 mg nightly - Essential hypertension Vasotec. Tenormin - Osteoarthritis of the lumbar spine, with chronic pain Motrin. Ultram. Neurontin. - Mild cognitive impairment - Full code On IV daptomycin. Discussed with ID. Plan for discharge tomorrow on Zyvox Past Medical History Past Medical History: Hyperlipidemia, Hypertension History of Any Multi-Drug Resistant Organisms: None Reported Past Surgical History: Back Surgery Past Psychological History: No Psychological Hx Reported Smoking Status: Former smoker Past Alcohol Use History: Occasional Past Drug Use History: None Reported
[2025-02-13 02:40] VITALS: RESP 16
[2025-02-13 09:04] VITALS: BP 131/75; PULSE 91; TEMP 97.5
--- NOTE | 2025-02-13 15:39 | P.PN ---
Subjective Progress Note Date: 02/13/25 Principal diagnosis: Reason for follow-up is right leg cellulitis Patient is a 79-year-old male with a past medical history significant for hypertension hyperlipidemia presenting to the hospital for evaluation of increasing pain swelling redness to right lower extremity has been diagnosed with a right leg cellulitis prompting this consultation. On today's evaluation that is 02/13/2025, the patient continues to be afebrile, the patient is on room air and breathing comfortably, the Pt denies having any chest pain or cough, the patient denies having any abdominal pain no vomiting or any diarrhea overall pain and swelling to the right lower extremity has decreased in intensity. No new lab has been obtained today culture has been negative so far Objective - Vital Signs Vital signs: Vital Signs Temp 97.5 F L 02/13/25 08:00 Pulse 91 02/13/25 08:00 Resp 16 02/13/25 08:00 BP 131/75 02/13/25 08:00 Pulse Ox 95 02/13/25 08:00 FiO2 Intake & Output 02/12/25 02/13/25 02/13/25 18:59 06:59 18:59 Intake Total 236 Balance 236 Weight 98.883 kg Intake: Oral 236 Other: Voiding Method Toilet Urinal # Voids 5 1 - Exam GENERAL DESCRIPTION: An elderly male lying in bed in no distress RESPIRATORY SYSTEM: Unlabored breathing , decreased breath sounds at bases HEART: S1 S2 regular rate and rhythm , ABDOMEN: Soft , no tenderness EXTREMITIES: Right lower extremity/swelling has slightly decreased did have some superficial ulceration from sloughing of the skin - Labs CBC & Chem 7: 02/12/25 03:05 02/12/25 03:05 Labs: Microbiology - Last 24 Hours (Table) 02/11/25 12:15 Gram Stain - Final Foot - Right Wound Culture - Final Assessment and Plan (1) Sepsis Current Visit: Yes Status: Acute Code(s): A41.9 - SEPSIS, UNSPECIFIED ORGANISM SNOMED Code(s): 35474520 (2) Cellulitis of right leg Current Visit: Yes Status: Acute Code(s): L03.115 - CELLULITIS OF RIGHT LOWER LIMB SNOMED Code(s): 14387319601556396 Plan: 1patient presented hospital with sepsis in this patient who did have fever tachycardia elevated white count meeting currently for SIRS source is right lower extremity cellulitis in this patient who did have diffuse swelling redness likely streptococcal disease 2-- Doppler of the lower extremity negative, patient advised to continue Ruben wrap from just over the toe to below the knee. 3patient did have resolution of his fever CT did not show any abscess 4patient did have improvement to the right lower extremity swelling or redness fever has resolved patient has been offered oral Zyvox that will needed dis continuation of the tramadol however they are preferring to continue with IV daptomycin midline has been ordered and a 10-day course of IV daptomycin on discharge Dictation was produced using [employer] dictation software. please excuse any grammatical, word or spelling errors.
--- NOTE | 2025-02-13 18:08 | P.DS ---
Providers Date of admission: 02/05/25 21:23 Expected date of discharge: 02/13/25 Attending physician: Adair Gusman Consults: 02/06/25 10:51 Consult Physician Stat Consulting Provider: April Olson Consult Reason/Comments: nfectious disease on antibiotics, cellulitis right leg Do you want consulting provider notified?: Yes 02/06/25 10:52 Consult Physician Stat Consulting Provider: Saeed Sharma Consult Reason/Comments: vascular red right leg cellulitis Do you want consulting provider notified?: Yes Primary care physician: [facility] Course: Chief Complaint: Right leg redness swelling Pleasant 79-year-old patient follows with Jennifer Wilson NP. Chronic medical conditions include hypertension, hyperlipidemia, chronic osteoarthritis specially lower back, CAD with stent 2006. History is obtained by patient's Rosi at the bedside. Patient has some cognitive impairment. Fever started 4 days ago. Significant chills and rigors. 2 days ago redness was noticed at the right leg. Decreased appetite. Admitted to the ER for cellulitis. Overnight redness extended up to the thigh. Swelling noted. February 07: Patient spiked fever. Getting Silvadene dressing with Ruben wrap. Nurse informed me there is a discrepancy between a temperature overall versus armpit which is likely higher. I have asked her to confirm and check a rectal temperature. P on IV cefazolin. Patient cellulitic lesions likely improving. Eating fair spoke at length with patient's Rosi at the bedside. February 08: Patient's right leg swelling with some edema. Slight oozing. Significant redness with blotchiness present. Being followed by Dr. Sharma from vascular and ID. Clindamycin is being added. Had received IV fluids. Al so drinking quite a bit of fluids. Patient is fluid restricted. Will give some IV Lasix 20 mcg x 2 doses. Discussed with the Rosi at the bedside. Patient's temperatures are being done in the armpit. Temperatures are coming down. Silvadene cream. Ruben wrap February 09: Right leg remains red. Had a fever of 101.4 last night. Otherwise feels down. I did give her a dose of Lasix this morning. Dr. Sharma ordered a CT scan of the right leg. Came back unremarkable. This seems to be a severe case of cellulitis. Antibiotic has been switched over to daptomycin by ID. Patient not too keen on hospital food. feels bringing food from home. Ensure added February 10: Redness in the right leg persist. Was started on daptomycin yesterday.: No fever last 24 hours. Eating about 50%. Reminded the patient to be up in the chair. Discussed with Dr. Sharma from vascular. February 11: Some redness present in the right leg. Some edema present. Otherwise a dose of Lasix ordered. Dr. Sharma did the roof ball of the right foot scab and got some deep cultures. Patient remained afebrile. Eating better. Discussed with the patient and February 12: Redness coming down. Still some swelling. Will give another dose of Lasix. Patient had no fever for over 48 hours. Discussed with ID. Plan is discharge with Zyvox. Getting IV daptomycin. February 13: Patient seen this afternoon. Getting a midline. ID is decided to proceed with IV daptomycin. For 10 days. Patient's edema is gone on the right leg. With some superficial sloughing of the skin. They have decided to come in every day for antibiotic treatment. Also spoke to Dr. Sharma from vascular. Wound care per him. Patient to follow-up at the wound care center on Sunday. Questions answered. Discussion and discharge planning more than 35 minutes Social history: Retired from [employer]. Smoked a pack a day for about 45 years stopped about 10 years ago alcohol occasionally Physical examination: VITAL SIGNS: 98.1, 65, 20, 126 x 80, 100% room air GENERAL: Laying in bed, comfortable EYES: Pupils equal. Conjunctiva qiana l. HEENT: External appearance of nose and ears normal, oral cavity grossly normal. NECK: JVD not raised; masses not palpable. HEART: First and second heart sounds are normal; LUNGS: Respiratory rate normal; decreased breath sounds. ABDOMEN: Soft, nontender, liver spleen not palpable, no masses palpable. PSYCH: Answering simple questions. Mood affect normal l. MUSCULOSKELETAL:No Clubbing/cyanosis;muscles-grossly intact Extremities: Decreased edema of the right lower extremity. Superficial sloughing. Some areas of rawness exposed. Otherwise decreased cellulitis. INVESTIGATIONS, reviewed in the clinical context: February 13: Potassium 4.2 creatinine 0.84 February 12: White count 15.7 hemoglobin 12.4 sodium 128 potassium 4.8 creatinine 0.66 February 10: White count 20.5 hemoglobin 12.5 platelets 199 sodium 128 potassium 4.5 BUN [address] with angio: [February 09] edema. No source of abscess February 05: White count 19.4 hemoglobin 13.8 sodium 123 potassium 4.5 BUN 36 creatinine 1.03 CRP 33.5 Foot, tibia-fibula x-ray: Nonspecific findings. Assessment plan: - Acute severe cellulitis/lymphangitis of the right lower extremity. [Symptoms present for about 4 days prior to presentation. Reports in the last 2 days. Overnight symptoms got worse. Causing sepsis.:] I continues to improve No fever IV daptomycin. Being discharged home on IV for 10 days - Severe sepsis from cellulitis: Improved I he daptomycin - Fluid overload from IV fluids and increased oral intake. Patient has been told to cut back on his fluid intake. Received a few doses of Lasix - Hyponatremia with hypervolemia: Improving IV Lasix. Fluid restriction. Avoid free water - Hyperlipidemia Lipitor 80 mg nightly - Essential hypertension Vasotec. Tenormin - Osteoarthritis of the lumbar spine, with chronic pain Motrin. Ultram. Neurontin. - Mild cognitive impairment - Full code Disposition: Home Labs: CBC BMP 3 to 4 days Past Medical History Past Medical History: Hyperlipidemia, Hypertension History of Any Multi-Drug Resistant Organisms: None Reported Past Surgical History: Back Surgery Past Psychological History: No Psychological Hx Reported Smoking Status: Former smoker Past Alcohol Use History: Occasional Past Drug Use History: None Reported Plan - Discharge Summary Discharge Rx Participant: No New Discharge Prescriptions: New Psyllium Husk 100% [Metamucil Packet] 6 gm PO DAILY packet Acetaminophen Tab [Tylenol] 650 mg PO Q6HR PRN tab PRN Reason: Mild Pain Or Fever > 100.5 DAPTOmycin 350 mg IV DAILY #10 each Aspirin 81 mg PO DAILY tab Continue atenoloL [Tenormin] 25 mg PO DAILY Enalapril [Vasotec] 10 mg PO DAILY@1500 Ezetimibe [Zetia] 10 mg PO W/SUPPER Atorvastatin [Lipitor] 80 mg PO W/SUPPER traMADol HCL 50 mg PO TID Gabapentin [Neurontin] 300 mg PO TID Discontinued Ibuprofen [Motrin Ib] 600 mg PO Q6H PRN PRN Reason: Pain Discharge Medication List Atorvastatin [Lipitor] 80 mg PO W/SUPPER 02/06/25 [History] Enalapril [Vasotec] 10 mg PO DAILY@1500 02/06/25 [History] Ezetimibe [Zetia] 10 mg PO W/SUPPER 02/06/25 [History] Gabapentin [Neurontin] 300 mg PO TID 02/06/25 [History] atenoloL [Tenormin] 25 mg PO DAILY 02/06/25 [History] traMADol HCL 50 mg PO TID 02/06/25 [History] Acetaminophen Tab [Tylenol] 650 mg PO Q6HR PRN tab 02/13/25 [Rx] Aspirin 81 mg PO DAILY tab 02/13/25 [Rx] DAPTOmycin 350 mg IV DAILY #10 each 02/13/25 [Rx] Psyllium Husk 100% [Metamucil Packet] 6 gm PO DAILY packet 02/13/25 [Rx] Follow up Appointment(s)/Referral(s): Mario Ambrocio MD [Primary Care Provider] - 1-2 days [facility], [NON-STAFF] - 1 Week [facility],Infusion [NON-STAFF] - 02/14/25 8:45 am aSeed Sharma MD [STAFF PHYSICIAN] - 02/16/25 April Olson MD [STAFF PHYSICIAN] - 1 Week Patient Instructions/Handouts: Cellulitis (GEN) Activity/Diet/Wound Care/Special Instructions: Please go to [facility] for antibiotic infusion on Sunday morning at 8:45 am. Wound care per Dr. Erika Sharma. Follow-up with wound care center on Sunday with Dr. Erika Sharma
--- NOTE | 2025-02-16 11:33 | CDI ---
Documentation Clarification Form Date: 02/16/2025 10:59:14 AM From: Yulissa Reaves Phone: Admit Date: 02/05/2025 09:23:00 PM Patient Name: Juan Collins Visit Number: [id number] Discharge Date: 02/13/2025 05:55:00 PM ATTENTION: The Clinical Documentation Specialists (CDI) and [facility] Coding Staff appreciate your assistance in clarifying documentation. Please respond to the clarification below the line at the bottom and electronically sign. The CDI & [facility] Coding staff will review the response and follow-up if needed. Please note: Queries are made part of the Legal Health Record. If you have any questions, please contact the author of this message via ITS. Doctor/Provider: Adair Gusman Acute severe cellulitis/lymphangitis is documented throughout the Progress Notes, and DC Summary. Additional clarification regarding the type of cellulitis is requested. History/risk factors: 79yo M, severecellulitis/lymphangitis, severe sepsisfromcellulitis, fluid overload, hypervolemia, HLD, HTN, hyponatremia, hypervolemia, OS lumbar,chronic pain, mild cognitive impairment Clinical Indicators: About 4 days prior to presentation. Reports in the last 2 days. Overnight symptoms got worse. Treatment: Being discharged home on IV for 10 days. IV daptomycin. Please clarify the type of cellulitis, if known: [ ] Diabetic cellulitis [ ] Chronic Cellulitis [ ] Acute Lymphangitis [ + ] Other, please specify: __See discharge summary. No change in documentation required [ ] Unable to determine (Template Last Revised: October 2022) MTDD
== END 2025-02-13 17:55 | disposition home health service (06) | DRG 872 ==
LOC: EC 18:00 → 1SOBS 21:22 → OBSVTOIN 21:23 → 1SOBS 22:05
PROVIDERS: ADMIT Hospitalist; ATTEND Hospitalist
PROC: 02HV33Z Insertion of Infusion Device into Superior Vena Cava, Percutaneous Approach (ICD-10-PCS; principal; 2025-02-13 17:50)
DX: A41.9 Sepsis, unspecified organism (principal); E87.1 Hypo-osmolality and hyponatremia; E87.79 Other fluid overload; I10 Essential (primary) hypertension; L97.911 Non-pressure chronic ulcer of unspecified part of right lower leg limited to breakdown of skin; L03.115 Cellulitis of right lower limb; L03.125 Acute lymphangitis of right lower limb; R65.20 Severe sepsis without septic shock; I25.10 Atherosclerotic heart disease of native coronary artery without angina pectoris; E78.5 Hyperlipidemia, unspecified; M47.816 Spondylosis without myelopathy or radiculopathy, lumbar region; G31.84 Mild cognitive impairment of uncertain or unknown etiology; Z95.5 Presence of coronary angioplasty implant and graft; Z87.891 Personal history of nicotine dependence; Z79.899 Other long term (current) drug therapy
CPT/HCPCS: 36410; 36415; 76937; 80048; 80053; 83605; 83930; 85025; 85027; 85652; 86140; 87040; 87070; 87205; 96365; 96375; 99284